=== PATIENT | male | born 1985 | race Two or more races ===

== ENCOUNTER 2023-08-02 08:32 | Inpatient (IN) | payer SELFPAY ==
[~2023-08-02] VITALS: Ht 167.6 cm; Wt 61.9 kg
[2023-08-02] MEDS: SODIUM CHLORIDE 0.9% 1,000 ML IV ONE (09:21)
[2023-08-02 09:33] LABS: Basophils # (auto) 0.1 10 ^3/uL (0-0.2); Eosinophils # (auto) 0.1 10 ^3/uL (0-0.8)
[2023-08-02 09:34] LABS: Basophils % (auto) 0.5 % (0.0-2.0); Eosinophils % (auto) 0.4 % (0.0-7.0); Hemoglobin 11.6 g/dL (13.5-17.5); Lymphocytes # (auto) 1.5 10 ^3/uL (0.4-5.4); Lymphocytes % (auto) 7.7 % (10.0-50.0); Mean Corpuscular Hemoglobin 34.5 pg (28.0-32.0); Mean Corpuscular Volume 101.3 fL (80.0-100.0); Monocytes # (auto) 1.3 10 ^3/uL (0-1.3); Monocytes % (auto) 6.8 % (0.0-12.0); Neutrophils # (auto) 16.6 10 ^3/uL (1.6-8.6); Neutrophils % (auto) 84.6 % (37.0-80.0); Red Blood Cells 3.35 10^6/uL (4.5-5.90); Red Cell Distribution Width 13.8 % (11.8-14.3); White Blood Cell 19.7 10^3/uL (4.4-10.8)
[2023-08-02 09:46] LABS: INR 1.52 (0.9-1.15); Prothrombin Time 15.5 sec (9.3-11.8)
[2023-08-02 09:50] LABS: Alanine Aminotransferase 70 U/L (7-40); Albumin 3.6 g/dL (3.2-4.8); Alkaline Phosphatase 256 U/L (46-116); Anion Gap 7 (5-15); Aspartate Aminotransferase 152 U/L (13-40); BUN/Creatinine Ratio 26.5 (10.0-20.0); Bilirubin, Total 5.1 mg/dL (0.2-1.0); Blood Urea Nitrogen 18 mg/dL (9-23); Calcium 9.1 mg/dL (8.5-10.1); Carbon Dioxide 29 mmol/L (20-30); Chloride 96 mmol/L (98-107); Glucose 158 mg/dL (74-106); Potassium 3.6 mmol/L (3.5-5.1); Sodium 132 mmol/L (136-145)
[2023-08-02 10:16] LABS: Urine Bacteria FEW /hpf (None Seen); Urine Blood Negative /uL (Negative); Urine Clarity Turbid (Clear); Urine Color Dark-Yellow (Yellow); Urine Hyaline Cast MANY /lpf (0 - 2); Urine Mucus FEW (None Seen); Urine Protein, UAD 1+ (Negative); Urine Specific Gravity 1.024 (1.001-1.035); Urine Urobilinogen OVER mg/dL (Negative); Urine WBC 5 /hpf (0 - 3); Urine pH 7.5 (5.0-9.0)
[2023-08-02 10:20] LABS: Amphetamine Screen, Urine Neg (NEGATIVE)
[2023-08-02 10:22] LABS: Barbiturate Scree,Urine Neg (NEGATIVE); Benzodiazephine Screen, Urine Neg (NEGATIVE); Cannabinoid Screen, Urine Pos (NEGATIVE); Cocaine Screen, Urine Neg (NEGATIVE); Opiate Scree,Urine Neg (NEGATIVE); Phencyclidine Screen, Urine Neg (NEGATIVE)
[2023-08-02] MEDS ORDERED: PANTOPRAZOLE 80 MG in SODIUM CHL 0.9% 100 ML IV ONE (10:30)
[2023-08-02] MEDS ORDERED: PANTOPRAZOLE 40mg/50ML NS AE 50 ML IV SCH (14:00)
[2023-08-02] MEDS ORDERED: DOCUSATE SOD 100 MG CAP PO PRN (14:00)
[2023-08-02] MEDS ORDERED: SODIUM CHLORIDE 0.9% 1,000 ML IV ONE (14:00)
[2023-08-02] MEDS ORDERED: cefTRIAXone 1GM/50ML D5W 50 ML IV ONE (14:00)
[2023-08-02] MEDS ORDERED: SODIUM CHLORIDE 0.9% 1,000 ML IV SCH (14:00)
[2023-08-02] MEDS ORDERED: ONDANSETRON HCL 4 MG/2 ML VIAL IV PRN (14:00)
[2023-08-02] MEDS ORDERED: MORPHINE SULFATE INJ 2 MG/ml SYRG IV PRN (14:00)
[2023-08-02 15:32] VITALS: BP 121/85; PULSE 140; RESP 16; TEMP 99.5; O2SAT 96
[2023-08-02 18:05] LABS: Hematocrit 36.3 % (41.0-53.0)
[2023-08-02] MEDS ORDERED: PIPERACILLIN-TAZOB 3.375GM 100 ML IV ONE (20:00)
[2023-08-03] MEDS ORDERED: PIPERACILLIN-TAZOB 3.375GM 100 ML IV SCH
[2023-08-03] MEDS ORDERED: cefTRIAXone 1GM/50ML D5W 50 ML IV SCH (09:00)
== END 2023-08-02 21:57 | disposition left against medical advice (07) | DRG 379 ==
LOC: ER 08:32 → EDBD 08:32 → OVERFLOW 14:06
PROVIDERS: ADMIT Nurse Practitioner Family; ATTEND Nurse Practitioner Family
DX: K92.2 Gastrointestinal hemorrhage, unspecified (principal); K70.9 Alcoholic liver disease, unspecified; D72.829 Elevated white blood cell count, unspecified; D50.0 Iron deficiency anemia secondary to blood loss (chronic); E86.0 Dehydration; F12.10 Cannabis abuse, uncomplicated
CPT/HCPCS: 36415; 76705; 80053; 80074; 80307; 80320; 81001; 83605; 85014; 85018; 85025; 85610; 85730; C9113; G0378

== ENCOUNTER 2023-08-03 04:55 | Inpatient (IN) | payer SELFPAY ==
[~2023-08-03] VITALS: Ht 167.6 cm; Wt 70.0 kg
[2023-08-03] MEDS: LORazepam 2MG/ML-1ML VIAL IV ONE (05:42)
[2023-08-03] MEDS: PANTOPRAZOLE 40 MG/10 ML VIAL INJ IV ONE (05:42)
[2023-08-03] MEDS: SODIUM CHLORIDE 0.9% 500 ML IV ONE (05:42)
[2023-08-03 05:48] LABS: Basophils # (auto) 0.1 10 ^3/uL (0-0.2); Eosinophils # (auto) 0 10 ^3/uL (0-0.8); Hemoglobin 9.1 g/dL (13.5-17.5); White Blood Cell 24.1 10^3/uL (4.4-10.8)
[2023-08-03 05:50] LABS: Basophils % (auto) 0.3 % (0.0-2.0); Eosinophils % (auto) 0.1 % (0.0-7.0); Hematocrit 26.8 % (41.0-53.0); Lymphocytes # (auto) 2.5 10 ^3/uL (0.4-5.4); Lymphocytes % (auto) 10.3 % (10.0-50.0); Mean Corpuscular Hemoglobin 34.9 pg (28.0-32.0); Mean Corpuscular Volume 102.7 fL (80.0-100.0); Monocytes # (auto) 1.4 10 ^3/uL (0-1.3); Monocytes % (auto) 5.9 % (0.0-12.0); Neutrophils # (auto) 20.1 10 ^3/uL (1.6-8.6); Neutrophils % (auto) 83.4 % (37.0-80.0); Red Blood Cells 2.61 10^6/uL (4.5-5.90); Red Cell Distribution Width 14.3 % (11.8-14.3)
[2023-08-03 06:02] LABS: Chloride 99 mmol/L (98-107); Potassium 3.5 mmol/L (3.5-5.1); Sodium 138 mmol/L (136-145)
[2023-08-03 06:03] LABS: Anion Gap 14 (5-15); Carbon Dioxide 25 mmol/L (20-30)
[2023-08-03 06:08] LABS: BUN/Creatinine Ratio 42.7 (10.0-20.0); Glucose 175 mg/dL (74-106)
[2023-08-03 06:09] LABS: Blood Alcohol < 3.0 mg/dL (<10); Blood Urea Nitrogen 41 mg/dL (9-23); INR 1.47 (0.9-1.15); Partial Thromboplastin Time 25.5 SEC (24.5-34.5); Prothrombin Time 15.1 sec (9.3-11.8)
[2023-08-03 07:40] VITALS: PULSE 136; RESP 16; O2SAT 98
[2023-08-03] MEDS ORDERED: SODIUM CHLORIDE 0.9% 500 ML IV ONE (10:30)
[2023-08-03] MEDS ORDERED: ACETAMINOPHEN 325 MG TAB PO PRN (10:30)
[2023-08-03] MEDS ORDERED: SODIUM CHLORIDE 0.9% 1,900 ML IV ONE (10:30)
[2023-08-03] MEDS ORDERED: MORPHINE SULFATE INJ 2 MG/ml SYRG IV PRN (10:30)
[2023-08-03] MEDS ORDERED: DOCUSATE SOD 100 MG CAP PO PRN (10:30)
[2023-08-03] MEDS ORDERED: LORazepam 2MG/ML-1ML VIAL IV PRN (10:30)
[2023-08-03] MEDS ORDERED: SODIUM CHLORIDE 0.9% 1,000 ML IV SCH (10:30)
[2023-08-03] MEDS ORDERED: ONDANSETRON HCL 4 MG/2 ML VIAL IV PRN (10:30)
[2023-08-03 11:25] LABS: Ferritin 715.9 ng/mL (22-322); Folate (Folic Acid) 7.79 ng/mL (>5.38)
[2023-08-03 11:26] LABS: % Iron Saturation 76.6 % (20-55)
[2023-08-03 11:37] LABS: Alanine Aminotransferase 67 U/L (7-40); Albumin 3.1 g/dL (3.2-4.8); Alkaline Phosphatase 188 U/L (46-116); Anion Gap 8 (5-15); Aspartate Aminotransferase 143 U/L (13-40); Blood Urea Nitrogen 48 mg/dL (9-23); Calcium 8.7 mg/dL (8.5-10.1); Carbon Dioxide 28 mmol/L (20-30); Chloride 104 mmol/L (98-107); Glucose 128 mg/dL (74-106); Potassium 3.6 mmol/L (3.5-5.1); Sodium 140 mmol/L (136-145)
[2023-08-03] MEDS: SODIUM CHLORIDE 0.9% 2,000 ML IV ONE (11:49)
[2023-08-03 12:55] LABS: Hematocrit 22.8 % (41.0-53.0); Hemoglobin 7.6 g/dL (13.5-17.5)
[2023-08-03] MEDS: PIPERACILLIN-TAZOB 3.375GM 100 ML IV SCH (12:59)
[2023-08-03] MEDS: PANTOPRAZOLE 40 MG in SODIUM CHL 0.9% 100 ML IV ONE (13:12)
[2023-08-03] MEDS: PANTOPRAZOLE 40mg/50ML NS AE 50 ML IV SCH (13:31)
[2023-08-03] MEDS: OCTREOTIDE ACETATE 100 MCG in SODIUM CHL 0.9% 50 ML IV ONE (15:21)
[2023-08-03] MEDS: OCTREOTIDE ACETATE 500 MCG in SODIUM CHL 0.9% 99 ML IV SCH (16:00)
[2023-08-03] MEDS: SODIUM CHLORIDE 0.9% 1,000 ML IV SCH (17:07)
[2023-08-03 18:43] LABS: Hematocrit 21.8 % (41.0-53.0); Hemoglobin 7.2 g/dL (13.5-17.5)
[2023-08-03] MEDS: IOHEXOL 300 MG/ML 100ML BOTTLE IJ ONE (19:26)
[2023-08-03 20:00] VITALS: PULSE 101; RESP 18; O2SAT 98
[2023-08-03] MEDS: OCTREOTIDE ACETATE 500 MCG/ML VL ONE (23:32)
[2023-08-04] VITALS (17 sets, daily range): BP systolic 98–120; BP diastolic 56–77; PULSE 84–111; RESP 16–20; TEMP 97.1–98.7; O2SAT 91–97
[2023-08-04 00:37] LABS: Hematocrit 22.4 % (41.0-53.0); Hemoglobin 7.3 g/dL (13.5-17.5)
[2023-08-04] MEDS ORDERED: ONDANSETRON HCL 4 MG/2 ML VIAL IV ONE (10:15)
[2023-08-04] MEDS ORDERED: hydrALAZINE HCL 20 MG/ML VL IV PRN (10:15)
[2023-08-04 12:32] LABS: Basophils # (auto) 0.2 10 ^3/uL (0-0.2); Basophils % (auto) 1.3 % (0.0-2.0); Eosinophils # (auto) 0.4 10 ^3/uL (0-0.8); Eosinophils % (auto) 2.8 % (0.0-7.0); Hematocrit 26.4 % (41.0-53.0); Hemoglobin 8.9 g/dL (13.5-17.5); Lymphocytes # (auto) 2.6 10 ^3/uL (0.4-5.4); Lymphocytes % (auto) 19.8 % (10.0-50.0); Mean Corpuscular Hemoglobin 33.2 pg (28.0-32.0); Mean Corpuscular Hgb Conc. 33.7 g/dL (32.0-36.0); Mean Corpuscular Volume 98.6 fL (80.0-100.0); Monocytes # (auto) 1.4 10 ^3/uL (0-1.3); Neutrophils # (auto) 8.5 10 ^3/uL (1.6-8.6); Neutrophils % (auto) 65.1 % (37.0-80.0); Nucleated Red Blood Cells % 0.1 %; Red Blood Cells 2.68 10^6/uL (4.5-5.90); Red Cell Distribution Width 17.8 % (11.8-14.3); White Blood Cell 13.1 10^3/uL (4.4-10.8)
[2023-08-04 14:38] LABS: Alanine Aminotransferase 56 U/L (7-40); Albumin 2.6 g/dL (3.2-4.8); Alkaline Phosphatase 138 U/L (46-116); Anion Gap 6 (5-15); Aspartate Aminotransferase 112 U/L (13-40); Bilirubin, Total 2.3 mg/dL (0.2-1.0); Blood Urea Nitrogen 20 mg/dL (9-23); Calcium 7.4 mg/dL (8.5-10.1); Carbon Dioxide 25 mmol/L (20-30); Chloride 110 mmol/L (98-107); Glucose 132 mg/dL (74-106); Potassium 3.3 mmol/L (3.5-5.1); Sodium 141 mmol/L (136-145); Total Protein 5.7 g/dL (5.7-8.2)
[2023-08-04] MEDS: POTASSIUM CHL 20 Meq TABLET PO ONE (16:20)
[2023-08-04 18:43] LABS: Hematocrit 25.6 % (41.0-53.0); Hemoglobin 8.3 g/dL (13.5-17.5)
[2023-08-04] MEDS: PANTOPRAZOLE 40 MG/10 ML VIAL INJ IV SCH (21:50)
[2023-08-04] MEDS: OCTREOTIDE ACETATE 500 MCG in SODIUM CHL 0.9% 99 ML IV SCH (22:47)
[2023-08-05] VITALS (10 sets, daily range): BP systolic 109–139; BP diastolic 56–82; PULSE 95–111; RESP 16–18; TEMP 98.1–98.7; O2SAT 89–100
[2023-08-05 06:12] LABS: Basophils # (auto) 0.2 10 ^3/uL (0-0.2); Eosinophils # (auto) 0.5 10 ^3/uL (0-0.8); Hemoglobin 8.3 g/dL (13.5-17.5); Monocytes # (auto) 1.4 10 ^3/uL (0-1.3); Nucleated Red Blood Cells % 0.3 %
[2023-08-05 06:14] LABS: Basophils % (auto) 1.3 % (0.0-2.0); Eosinophils % (auto) 3.8 % (0.0-7.0); Hematocrit 24.8 % (41.0-53.0); Lymphocytes # (auto) 3.5 10 ^3/uL (0.4-5.4); Lymphocytes % (auto) 28.1 % (10.0-50.0); Mean Corpuscular Hemoglobin 33.2 pg (28.0-32.0); Mean Corpuscular Hgb Conc. 33.4 g/dL (32.0-36.0); Mean Corpuscular Volume 99.5 fL (80.0-100.0); Monocytes % (auto) 11.3 % (0.0-12.0); Neutrophils % (auto) 55.5 % (37.0-80.0); Red Blood Cells 2.49 10^6/uL (4.5-5.90); Red Cell Distribution Width 17.8 % (11.8-14.3); White Blood Cell 12.5 10^3/uL (4.4-10.8)
[2023-08-05] MEDS ORDERED: METR-344 PO (14:36)
== END 2023-08-05 17:35 | disposition home or self-care (01) | DRG 377 ==
LOC: ER 04:55 → EDSEX 04:55 → EDBD 04:55 → TELE 10:27 → TELE-WESTW 22:52
PROVIDERS: ADMIT Internal Medicine; ATTEND Internal Medicine
PROC: 30233N1 Transfusion of Nonautologous Red Blood Cells into Peripheral Vein, Percutaneous Approach (ICD-10-PCS; 2023-08-04)
PROC: 0DB78ZX Excision of Stomach, Pylorus, Via Natural or Artificial Opening Endoscopic, Diagnostic (ICD-10-PCS; principal; 2023-08-04 09:38)
DX: K26.4 Chronic or unspecified duodenal ulcer with hemorrhage (principal); K20.91 Esophagitis, unspecified with bleeding; F10.139 Alcohol abuse with withdrawal, unspecified; D62 Acute posthemorrhagic anemia; K29.01 Acute gastritis with bleeding; Y90.9 Presence of alcohol in blood, level not specified; K70.9 Alcoholic liver disease, unspecified; E86.0 Dehydration; D72.829 Elevated white blood cell count, unspecified
CPT/HCPCS: 36415; 74177; 80048; 80053; 80320; 82607; 82728; 82746; 83540; 83550; 83605; 83615; 85014; 85018; 85025; 85045; 85610; 85730; 86850; 86900; 86901; 86920; 87040; 93005; 96365; 96375; C9113; G0378; J2543

== ENCOUNTER 2023-11-06 02:44 | Inpatient (IN) | payer MEDICAID, OTHER ==
[2023-11-06] VITALS (39 sets, daily range): BP systolic 86–114; BP diastolic 37–71; PULSE 99–121; RESP 12–26; TEMP 97.6–99; O2SAT 94–100
[~2023-11-06] VITALS: Ht 165.1 cm; Wt 65.3 kg
[~2023-11-06 02:44] MED LIST: METR-344 PO
[2023-11-06] MEDS: SODIUM CHLORIDE 0.9% 1,000 ML IV ONE ×2 (04:14→05:38)
[2023-11-06] MEDS: PANTOPRAZOLE 40 MG/10 ML VIAL INJ IV ONE (04:17)
[2023-11-06 04:31] LABS: INR 1.63 (0.9-1.15); Prothrombin Time 16.7 sec (9.3-11.8)
[2023-11-06 04:31] LABS: Hematocrit 7.4 % (41.0-53.0); Red Blood Cells 0.96 10^6/uL (4.5-5.90)
[2023-11-06 04:32] LABS: Mean Corpuscular Hemoglobin 19.6 pg (28.0-32.0); Mean Corpuscular Hgb Conc. 25.6 g/dL (32.0-36.0); Mean Corpuscular Volume 76.7 fL (80.0-100.0)
[2023-11-06 04:34] LABS: Alanine Aminotransferase 43 U/L (7-40); Albumin 2.9 g/dL (3.2-4.8); Alkaline Phosphatase 166 U/L (46-116); Anion Gap 21 (5-15); Aspartate Aminotransferase 105 U/L (13-40); BUN/Creatinine Ratio 32.3 (10.0-20.0); Blood Urea Nitrogen 42 mg/dL (9-23); Calcium 8.7 mg/dL (8.7-10.4); Carbon Dioxide 15 mmol/L (20-30); Chloride 92 mmol/L (98-107); Glucose 106 mg/dL (74-106); Potassium 4.1 mmol/L (3.5-5.1); Sodium 128 mmol/L (136-145)
[2023-11-06 04:35] LABS: Bilirubin, Total 1.8 mg/dL (0.2-1.0); Total Protein 6.4 g/dL (5.7-8.2)
[2023-11-06 04:35] LABS: Red Cell Distribution Width 26.3 % (11.8-14.3)
[2023-11-06 04:36] LABS: Hemoglobin 1.9 g/dL (13.5-17.5); White Blood Cell 32.9 10^3/uL (4.4-10.8)
[2023-11-06 04:38] LABS: Basophils % (manual) 0 (0.0-2.0); Blast Cells 0; Eosinophils % (manual) 0 (0-7); Metamyelocytes % 0; Myelocytes % 0; Promyelocytes % 0; Reactive Lymphocytes 0
[2023-11-06] MEDS: OCTREOTIDE ACETATE 500 MCG in SODIUM CHL 0.9% 99 ML IV SCH (05:38)
[2023-11-06] MEDS: OCTREOTIDE ACETATE 500 MCG/ML VL ONE (05:52)
[2023-11-06 06:21] LABS: Band Neutrophils % (manual) 4; Lymphocytes % (manual) 9 (10.0-50.0); Monocytes % (manual) 12 (0-12)
[2023-11-06 06:22] LABS: Anisocytosis Moderate; Hypochromia Marked
[2023-11-06 06:23] LABS: Platelet Estimate Adequate
[2023-11-06] MEDS ORDERED: NITROGLYCERIN 0.4 MG SL TAB SL PRN (06:30)
[2023-11-06] MEDS ORDERED: MORPHINE SULFATE INJ 2 MG/ml SYRG IV PRN ×2 (06:30→14:45)
[2023-11-06] MEDS ORDERED: ONDANSETRON HCL 4 MG/2 ML VIAL IV PRN (06:30)
[2023-11-06] MEDS: PANTOPRAZOLE 40mg/50ML NS AE 50 ML IV SCH (06:49)
[2023-11-06] MEDS ORDERED: LORazepam 2MG/ML-1ML VIAL IV PRN (12:15)
[2023-11-06] MEDS ORDERED: OMNIPAQUE 12mg/ml 500ml ORAL SOLUTION PO ONE (12:18)
[2023-11-06 19:33] LABS: Hematocrit 17.3 % (41.0-53.0); Mean Corpuscular Hemoglobin 27.2 pg (28.0-32.0); Mean Corpuscular Hgb Conc. 32.4 g/dL (32.0-36.0); Mean Corpuscular Volume 84.1 fL (80.0-100.0); Red Blood Cells 2.06 10^6/uL (4.5-5.90); White Blood Cell 22.3 10^3/uL (4.4-10.8)
[2023-11-06 19:36] LABS: Red Cell Distribution Width 21.8 % (11.8-14.3)
[2023-11-06 19:37] LABS: Hemoglobin 5.6 g/dL (13.5-17.5)
[2023-11-06 19:39] LABS: Band Neutrophils % (manual) 0; Basophils % (manual) 0 (0.0-2.0); Blast Cells 0; Eosinophils % (manual) 0 (0-7); Metamyelocytes % 0; Myelocytes % 0; Promyelocytes % 0; Reactive Lymphocytes 0
[2023-11-06 19:47] LABS: INR 1.52 (0.9-1.15); Partial Thromboplastin Time 25.2 SEC (24.5-34.5); Prothrombin Time 15.6 sec (9.3-11.8)
[2023-11-06] MEDS: FOLIC ACID 1 MG, MAGNESIUM SULF SDV 50% 8 MEQ, MULTIPLE VITAMIN 10 ML, THIAMINE INJ 100... INJ SCH (20:00)
[2023-11-06 20:27] LABS: Lymphocytes % (manual) 6 (10.0-50.0); Monocytes % (manual) 9 (0-12)
[2023-11-06 20:28] LABS: Anisocytosis Slight; Platelet Estimate Adequate; Stomatocytes Few
[2023-11-06] MEDS: PANTOPRAZOLE 40 MG/10 ML VIAL INJ IV SCH (22:37)
[2023-11-07] VITALS (51 sets, daily range): BP systolic 97–138; BP diastolic 56–89; PULSE 84–102; RESP 14–26; TEMP 97.9–99.2; O2SAT 87–99
[2023-11-07 04:35] LABS: Urine Bacteria None Seen /hpf (None Seen)
[2023-11-07 04:43] LABS: Urine Blood Negative /uL (Negative); Urine Clarity Clear (Clear); Urine Color Yellow (Yellow); Urine Protein, UAD Negative (Negative); Urine Specific Gravity 1.021 (1.001-1.035); Urine Urobilinogen Normal (Negative); Urine WBC 1 /hpf (0 - 3)
[2023-11-07 04:46] LABS: Basophils # (auto) 0 10 ^3/uL (0-0.2); Basophils % (auto) 0.2 % (0.0-2.0); Eosinophils # (auto) 0 10 ^3/uL (0-0.8); Eosinophils % (auto) 0.1 % (0.0-7.0); Hematocrit 25.8 % (41.0-53.0); Hemoglobin 8.3 g/dL (13.5-17.5); Lymphocytes # (auto) 1.2 10 ^3/uL (0.4-5.4); Mean Corpuscular Hemoglobin 27.6 pg (28.0-32.0); Mean Corpuscular Hgb Conc. 32.3 g/dL (32.0-36.0); Mean Corpuscular Volume 85.6 fL (80.0-100.0); Monocytes # (auto) 1.7 10 ^3/uL (0-1.3); Monocytes % (auto) 9.6 % (0.0-12.0); Neutrophils # (auto) 14.7 10 ^3/uL (1.6-8.6); Neutrophils % (auto) 83.1 % (37.0-80.0); Red Blood Cells 3.01 10^6/uL (4.5-5.90); Red Cell Distribution Width 19.6 % (11.8-14.3); White Blood Cell 17.7 10^3/uL (4.4-10.8)
[2023-11-07 04:54] LABS: Alanine Aminotransferase 85 U/L (7-40); Albumin 3.1 g/dL (3.2-4.8); Alkaline Phosphatase 156 U/L (46-116); Anion Gap 7 (5-15); Aspartate Aminotransferase 212 U/L (13-40); BUN/Creatinine Ratio 32.3 (10.0-20.0); Bilirubin, Total 4.6 mg/dL (0.2-1.0); Calcium 7.8 mg/dL (8.7-10.4); Carbon Dioxide 24 mmol/L (20-30); Chloride 102 mmol/L (98-107); Glucose 108 mg/dL (74-106); Potassium 3.5 mmol/L (3.5-5.1); Total Protein 6.5 g/dL (5.7-8.2)
[2023-11-07 04:59] LABS: Blood Urea Nitrogen 30 mg/dL (9-23); Sodium 133 mmol/L (136-145)
[2023-11-07 09:07] LABS: Platelet Estimate Adequate
[2023-11-07] MEDS ORDERED: PROPOFOL 10 MG/ML 20 ML IV ONE (12:39)
[2023-11-07] MEDS ORDERED: MIDAZOLAM HCL 2MG/2ML 2ml VIAL (1mg/ml) ONE (12:39)
[2023-11-07] MEDS ORDERED: GLYCOPYRROLATE 0.2 MG/ML 1ML VIAL ONE (12:39)
[2023-11-07] MEDS ORDERED: fentaNYL CITRATE 100 MCG/2 ML VL ONE (12:39)
[2023-11-07] MEDS ORDERED: ONDANSETRON HCL 4 MG/2 ML VIAL ONE (12:39)
[2023-11-07] MEDS ORDERED: GADOTERATE MEG 10 MMOL/20ml INJ (0.5MMOL/ml) IV ONE (17:32)
[2023-11-07] MEDS ORDERED: EZ PAQUE SUSP 12OZ BTL ONE (17:32)
[2023-11-07] MEDS: SUCRALFATE 1 GM/10 ML ORAL SUSP GT SCH (18:15)
[2023-11-08] VITALS (11 sets, daily range): BP systolic 120–145; BP diastolic 80–98; PULSE 88–101; RESP 16–21; TEMP 97.7–98.8; O2SAT 91–97
[2023-11-08 08:10] LABS: Basophils # (auto) 0.1 10 ^3/uL (0-0.2); Basophils % (auto) 0.8 % (0.0-2.0); Eosinophils # (auto) 0.1 10 ^3/uL (0-0.8); Eosinophils % (auto) 0.8 % (0.0-7.0); Hematocrit 24.2 % (41.0-53.0); Hemoglobin 7.7 g/dL (13.5-17.5); Lymphocytes # (auto) 1.8 10 ^3/uL (0.4-5.4); Lymphocytes % (auto) 15.4 % (10.0-50.0); Mean Corpuscular Hemoglobin 27.2 pg (28.0-32.0); Mean Corpuscular Hgb Conc. 31.7 g/dL (32.0-36.0); Mean Corpuscular Volume 85.7 fL (80.0-100.0); Monocytes # (auto) 1.5 10 ^3/uL (0-1.3); Monocytes % (auto) 12.9 % (0.0-12.0); Neutrophils # (auto) 8.1 10 ^3/uL (1.6-8.6); Neutrophils % (auto) 70.1 % (37.0-80.0); Nucleated Red Blood Cells % 0.1 %; Red Blood Cells 2.82 10^6/uL (4.5-5.90); Red Cell Distribution Width 19.9 % (11.8-14.3); White Blood Cell 11.5 10^3/uL (4.4-10.8)
[2023-11-08 08:35] LABS: Alanine Aminotransferase 103 U/L (7-40); Albumin 2.7 g/dL (3.2-4.8); Alkaline Phosphatase 139 U/L (46-116); Anion Gap 6 (5-15); Aspartate Aminotransferase 153 U/L (13-40); BUN/Creatinine Ratio 23.7 (10.0-20.0); Blood Urea Nitrogen 18 mg/dL (9-23); Calcium 7.5 mg/dL (8.7-10.4); Carbon Dioxide 24 mmol/L (20-30); Chloride 103 mmol/L (98-107); Glucose 90 mg/dL (74-106); Potassium 3.7 mmol/L (3.5-5.1); Sodium 133 mmol/L (136-145)
[2023-11-08 08:36] LABS: Bilirubin, Total 3.9 mg/dL (0.2-1.0); Total Protein 5.6 g/dL (5.7-8.2)
[2023-11-08] MEDS: FERROUS SULFATE 325mg EC TAB PO SCH (17:49)
[2023-11-09] VITALS (7 sets, daily range): BP systolic 114–140; BP diastolic 76–94; PULSE 81–98; RESP 16–20; TEMP 97.9–98.5; O2SAT 95–97
[2023-11-09 05:36] LABS: Hemoglobin 7.7 g/dL (13.5-17.5)
[2023-11-09 05:42] LABS: Hematocrit 23.5 % (41.0-53.0)
[2023-11-09] MEDS: THIAMINE HCL 100 MG TAB PO SCH (09:48)
[2023-11-09] MEDS: MULTIPLE VITAMINS W/ MINERALS TAB PO SCH (09:49)
[2023-11-09] MEDS: fentaNYL CITRATE 100 MCG/2 ML VL IV ONE (11:00)
[2023-11-09] MEDS: GELATIN 1 SPONGE SIZE 50 TOP ONE (11:00)
[2023-11-09] MEDS: LIDOCAINE 2%HCL (LOCAL ANESTH.) INJ 10ml MDV ONE (11:00)
[2023-11-09] MEDS: MIDAZOLAM HCL 2MG/2ML 2ml VIAL (1mg/ml) IV ONE (11:00)
[2023-11-09] MEDS ORDERED: PANT40TA2 PO (11:33)
[2023-11-09] MEDS ORDERED: SUCR1TAB31 PO (11:33)
== END 2023-11-09 18:30 | disposition home or self-care (01) | DRG 241 ==
LOC: ER 02:44 → DOU IN ICU 06:32 → TELE 06:32 → DOU IN ICU 08:06 → TELE-WESTW 11-08 04:05
PROVIDERS: ADMIT Nurse Practitioner; ATTEND Nurse Practitioner Acute Care
PROC: 30233K1 Transfusion of Nonautologous Frozen Plasma into Peripheral Vein, Percutaneous Approach (ICD-10-PCS; 2023-11-06)
PROC: 30233N1 Transfusion of Nonautologous Red Blood Cells into Peripheral Vein, Percutaneous Approach (ICD-10-PCS; 2023-11-06)
PROC: 0DB68ZX Excision of Stomach, Via Natural or Artificial Opening Endoscopic, Diagnostic (ICD-10-PCS; 2023-11-07)
PROC: 0DB98ZX Excision of Duodenum, Via Natural or Artificial Opening Endoscopic, Diagnostic (ICD-10-PCS; principal; 2023-11-07 12:58)
PROC: 0FB03ZX Excision of Liver, Percutaneous Approach, Diagnostic (ICD-10-PCS; 2023-11-09)
DX: K29.71 Gastritis, unspecified, with bleeding (principal); E43 Unspecified severe protein-calorie malnutrition; K22.11 Ulcer of esophagus with bleeding; K76.6 Portal hypertension; K70.31 Alcoholic cirrhosis of liver with ascites; C22.0 Liver cell carcinoma; E87.1 Hypo-osmolality and hyponatremia; K25.4 Chronic or unspecified gastric ulcer with hemorrhage; K29.81 Duodenitis with bleeding; R65.10 Systemic inflammatory response syndrome (SIRS) of non-infectious origin without acute organ dysfunction; D50.0 Iron deficiency anemia secondary to blood loss (chronic); F10.20 Alcohol dependence, uncomplicated; Y90.9 Presence of alcohol in blood, level not specified; K31.9 Disease of stomach and duodenum, unspecified; K44.9 Diaphragmatic hernia without obstruction or gangrene; Z68.24 Body mass index [BMI] 24.0-24.9, adult
CPT/HCPCS: 10005; 36415; 74150; 74183; 76942; 77012; 80053; 81001; 82105; 82378; 83615; 85007; 85014; 85018; 85025; 85027; 85610; 85730; 86301; 86850; 86900; 86901; 86920; 87081; G0378; J2001; J2250; J2405; J2470; J2704

== ENCOUNTER 2024-01-25 15:44 | Inpatient (IN) | payer SELFPAY ==
[~2024-01-25] VITALS: Ht 167.6 cm; Wt 56.6 kg
[~2024-01-25 15:44] MED LIST changes: +PANT40TA2 PO; +SUCR1TAB31 PO
[2024-01-25] MEDS: SODIUM CHLORIDE 0.9% 1,000 ML IVB ONE (17:00)
[2024-01-25] MEDS: PANTOPRAZOLE 40 MG TAB PO ONE (18:15)
[2024-01-25 19:04] LABS: Basophils # (auto) 0.1 10 ^3/uL (0-0.2); Eosinophils # (auto) 0 10 ^3/uL (0-0.8); Eosinophils % (auto) 0.1 % (0.0-7.0); Hematocrit 11.4 % (41.0-53.0); Lymphocytes # (auto) 0.7 10 ^3/uL (0.4-5.4); Mean Corpuscular Hemoglobin 21.7 pg (28.0-32.0); Mean Corpuscular Hgb Conc. 29.8 g/dL (32.0-36.0); Mean Corpuscular Volume 72.7 fL (80.0-100.0); Neutrophils % (auto) 84.8 % (37.0-80.0); Red Blood Cells 1.56 10^6/uL (4.5-5.90)
[2024-01-25 19:05] LABS: Basophils % (auto) 1.5 % (0.0-2.0); Lymphocytes % (auto) 7.8 % (10.0-50.0); Monocytes # (auto) 0.5 10 ^3/uL (0-1.3); Monocytes % (auto) 5.8 % (0.0-12.0); Neutrophils # (auto) 7.4 10 ^3/uL (1.6-8.6); Nucleated Red Blood Cells % 0.3 %; Platelet Count (auto) 197 10^3/uL (140-450); White Blood Cell 8.7 10^3/uL (4.4-10.8)
[2024-01-25 19:17] LABS: Alanine Aminotransferase 17 U/L (7-40); Albumin 3.6 g/dL (3.2-4.8); Alkaline Phosphatase 199 U/L (46-116); Anion Gap 9 (5-15); Aspartate Aminotransferase 34 U/L (13-40); BUN/Creatinine Ratio 24.5 (10.0-20.0); Bilirubin, Total 2.2 mg/dL (0.2-1.0); Blood Urea Nitrogen 13 mg/dL (9-23); Calcium 9.2 mg/dL (8.7-10.4); Carbon Dioxide 21 mmol/L (20-31); Chloride 106 mmol/L (98-107); Glucose 128 mg/dL (74-106); Lipase 27 U/L (12-53); Magnesium 1.6 mg/dL (1.6-2.6); Potassium 4.1 mmol/L (3.5-5.1); Sodium 136 mmol/L (136-145); Total Protein 7.4 g/dL (5.7-8.2)
[2024-01-25 19:18] LABS: INR 1.4 (0.9-1.15); Partial Thromboplastin Time 22.9 SEC (24.5-34.5); Prothrombin Time 14.5 sec (9.3-11.8)
[2024-01-25 19:29] LABS: Red Cell Distribution Width 25.6 % (11.8-14.3)
[2024-01-25 19:30] LABS: Hemoglobin 3.4 g/dL (13.5-17.5)
[2024-01-25 19:45] VITALS: PULSE 124; RESP 20; O2SAT 99
[2024-01-25 20:01] LABS: Urine Bacteria FEW /hpf (None Seen); Urine Blood Negative /uL (Negative); Urine Clarity Turbid (Clear); Urine Color Yellow (Yellow); Urine Mucus MODERATE (None Seen); Urine Protein, UAD 1+ (Negative); Urine Urobilinogen 3 mg/dL (Negative); Urine WBC 8 /hpf (0 - 3)
[2024-01-25] MEDS: PANTOPRAZOLE 40mg/50ML NS AE 50 ML IV ONE (20:07)
[2024-01-25 20:11] LABS: Anisocytosis Moderate; Hypochromia Moderate; Platelet Estimate Adequate
[2024-01-25 20:15] LABS: Tear Drop Cells FEW
[2024-01-25] MEDS ORDERED: MORPHINE SULFATE INJ 2 MG/ml SYRG IV PRN (20:30)
[2024-01-25] MEDS ORDERED: ACETAMINOPHEN 500 MG TAB PO PRN (20:30)
[2024-01-25] MEDS: MAGNESIUM SULFATE 1GM/100ML 100 ML IV ONE (20:56)
[2024-01-25] MEDS: SODIUM CHLORIDE 0.9% 1,000 ML IV ONE (20:56)
[2024-01-25] MEDS: THIAMINE 100mg/ml INJ (200mg/2ml VIAL) IV ONE (20:56)
[2024-01-25 21:23] LABS: Blood Alcohol < 3.0 mg/dL (<10)
[2024-01-25 21:25] LABS: Phosphorus 4.3 mg/dL (2.4-5.1)
[2024-01-25 21:50] VITALS: BP 119/65; PULSE 120; RESP 19; TEMP 99.3
[2024-01-25 21:55] VITALS: BP 128/71; PULSE 118; RESP 19; TEMP 99.3
[2024-01-25 22:10] VITALS: BP 125/69; PULSE 117; RESP 17; TEMP 99.3
[2024-01-25] MEDS ORDERED: LORazepam 2MG/ML-1ML VIAL IV PRN ×2 (22:15→23:30)
[2024-01-25] MEDS ORDERED: DEXTROSE (50%) 50ML SYRG IV PRN (22:15)
[2024-01-25] MEDS: OCTREOTIDE ACETATE 100 MCG in SODIUM CHL 0.9% 50 ML IV ONE (22:28)
[2024-01-25 22:31] LABS: Amphetamine Screen, Urine Neg (NEGATIVE); Barbiturate Scree,Urine Neg (NEGATIVE); Benzodiazephine Screen, Urine Neg (NEGATIVE); Cannabinoid Screen, Urine Pos (NEGATIVE); Cocaine Screen, Urine Pos (NEGATIVE); Opiate Scree,Urine Neg (NEGATIVE); Phencyclidine Screen, Urine Neg (NEGATIVE)
[2024-01-25] MEDS: OCTREOTIDE ACETATE 500 MCG in SODIUM CHL 0.9% 99 ML IV SCH (22:40)
[2024-01-26] VITALS (21 sets, daily range): BP systolic 115–154; BP diastolic 72–99; PULSE 80–102; RESP 14–22; TEMP 98.2–99.2; O2SAT 97–99
[2024-01-26] MEDS: InsuLIN REG 1unit/0.01ml Soln (100units/ml) SC SCH
[2024-01-26] MEDS: cefTRIAXone 1GM/50ML D5W 50 ML IV ONE (00:01)
[2024-01-26] MEDS: ACCU-CHEK COMFORT CURVE STRIP VI SCH (00:29)
[2024-01-26 05:59] LABS: Basophils # (auto) 0.1 10 ^3/uL (0-0.2); Eosinophils # (auto) 0 10 ^3/uL (0-0.8); Eosinophils % (auto) 0.1 % (0.0-7.0); Mean Corpuscular Hemoglobin 25.1 pg (28.0-32.0); Mean Corpuscular Hgb Conc. 31.2 g/dL (32.0-36.0)
[2024-01-26 06:01] LABS: Basophils % (auto) 0.8 % (0.0-2.0); Hematocrit 16.8 % (41.0-53.0); Lymphocytes # (auto) 1.7 10 ^3/uL (0.4-5.4); Lymphocytes % (auto) 16.5 % (10.0-50.0); Mean Corpuscular Volume 80.7 fL (80.0-100.0); Monocytes # (auto) 1.1 10 ^3/uL (0-1.3); Monocytes % (auto) 10.4 % (0.0-12.0); Neutrophils # (auto) 7.3 10 ^3/uL (1.6-8.6); Neutrophils % (auto) 72.2 % (37.0-80.0); Nucleated Red Blood Cells % 0.1 %; Platelet Count (auto) 124 10^3/uL (140-450); Red Blood Cells 2.08 10^6/uL (4.5-5.90); White Blood Cell 10.1 10^3/uL (4.4-10.8)
[2024-01-26 06:08] LABS: Red Cell Distribution Width 22.9 % (11.8-14.3)
[2024-01-26 06:09] LABS: Hemoglobin 5.2 g/dL (13.5-17.5)
[2024-01-26 06:21] LABS: % Iron Saturation 21.8 % (20-55)
[2024-01-26 06:22] LABS: Alanine Aminotransferase 14 U/L (7-40); Albumin 2.8 g/dL (3.2-4.8); Alkaline Phosphatase 152 U/L (46-116); Anion Gap 7 (5-15); Aspartate Aminotransferase 29 U/L (13-40); BUN/Creatinine Ratio 23.1 (10.0-20.0); Blood Urea Nitrogen 12 mg/dL (9-23); Calcium 8.2 mg/dL (8.7-10.4); Carbon Dioxide 20 mmol/L (20-31); Chloride 110 mmol/L (98-107); Glucose 108 mg/dL (74-106); Potassium 4.3 mmol/L (3.5-5.1); Sodium 137 mmol/L (136-145)
[2024-01-26 06:23] LABS: Bilirubin, Total 2.3 mg/dL (0.2-1.0)
[2024-01-26] MEDS: cefTRIAXone 1GM/50ML D5W 50 ML IV SCH (09:29)
[2024-01-26 11:47] LABS: INR 1.29 (0.9-1.15); Partial Thromboplastin Time 24.4 SEC (24.5-34.5); Prothrombin Time 13.4 sec (9.3-11.8)
[2024-01-26 16:01] LABS: Hematocrit 21.2 % (41.0-53.0)
[2024-01-26 16:13] LABS: Hemoglobin 6.7 g/dL (13.5-17.5)
[2024-01-26] MEDS ORDERED: SUCRALFATE 1 GM/10 ML ORAL SUSP GT SCH (17:00)
[2024-01-26] MEDS: SUCRALFATE 1 GM/10 ML ORAL SUSP PO SCH (17:09)
[2024-01-26] MEDS: OCTREOTIDE ACETATE 500 MCG/ML VL ONE (18:42)
[2024-01-26] MEDS: PANTOPRAZOLE 40 MG/10 ML VIAL INJ IV SCH (22:14)
[2024-01-26 23:48] LABS: Hematocrit 26.7 % (41.0-53.0); Hemoglobin 9.1 g/dL (13.5-17.5)
[2024-01-27 08:30] VITALS: PULSE 83; RESP 16; O2SAT 97
[2024-01-27 09:00] VITALS: PULSE 96
[2024-01-27 09:01] VITALS: BP 163/98; PULSE 94; RESP 19; TEMP 97.9; O2SAT 98
[2024-01-27 09:09] VITALS: PULSE 94; RESP 17; O2SAT 97
[2024-01-27 13:00] VITALS: BP 149/95; PULSE 81; RESP 18; TEMP 98.2; O2SAT 96
[2024-01-27 14:48] LABS: Basophils # (auto) 0.1 10 ^3/uL (0-0.2); Basophils % (auto) 1.5 % (0.0-2.0); Eosinophils # (auto) 0.2 10 ^3/uL (0-0.8); Eosinophils % (auto) 2.8 % (0.0-7.0); Hematocrit 27.8 % (41.0-53.0); Hemoglobin 9.3 g/dL (13.5-17.5); Lymphocytes % (auto) 13.9 % (10.0-50.0); Mean Corpuscular Hgb Conc. 33.3 g/dL (32.0-36.0); Monocytes # (auto) 0.7 10 ^3/uL (0-1.3); Monocytes % (auto) 9.1 % (0.0-12.0); Neutrophils # (auto) 5.2 10 ^3/uL (1.6-8.6); Neutrophils % (auto) 72.7 % (37.0-80.0); Platelet Count (auto) 128 10^3/uL (140-450); Red Blood Cells 3.43 10^6/uL (4.5-5.90); Red Cell Distribution Width 19.9 % (11.8-14.3); White Blood Cell 7.2 10^3/uL (4.4-10.8)
[2024-01-27 17:00] VITALS: BP 144/85; PULSE 90; RESP 17; TEMP 98.3; O2SAT 97
[2024-01-28 11:19] LABS: Folate (Folic Acid) 8.6 ng/mL (>5.38)
== END 2024-01-27 19:55 | disposition home or self-care (01) | DRG 432 ==
LOC: ER 15:44 → OVERFLOW 21:44 → TELE-EAST 21:51
PROVIDERS: ADMIT Student in an Organized Health Care Education/Training Program; ATTEND Emergency Medicine
PROC: 30233N1 Transfusion of Nonautologous Red Blood Cells into Peripheral Vein, Percutaneous Approach (ICD-10-PCS; 2024-01-25)
PROC: 30233K1 Transfusion of Nonautologous Frozen Plasma into Peripheral Vein, Percutaneous Approach (ICD-10-PCS; principal; 2024-01-26)
DX: K74.60 Unspecified cirrhosis of liver (principal); I85.11 Secondary esophageal varices with bleeding; K26.4 Chronic or unspecified duodenal ulcer with hemorrhage; D68.9 Coagulation defect, unspecified; F10.139 Alcohol abuse with withdrawal, unspecified; K70.9 Alcoholic liver disease, unspecified; D50.0 Iron deficiency anemia secondary to blood loss (chronic); F14.10 Cocaine abuse, uncomplicated; Z87.11 Personal history of peptic ulcer disease; Z79.899 Other long term (current) drug therapy; Y90.9 Presence of alcohol in blood, level not specified
CPT/HCPCS: 36415; 71046; 74176; 80053; 80307; 80320; 81001; 82306; 82607; 82746; 82962; 83540; 83550; 83690; 83735; 84100; 84443; 85014; 85018; 85025; 85610; 85730; 86850; 86900; 86901; 86920; 93005; 99291; G0378; J2470

== ENCOUNTER 2024-07-12 19:46 | Inpatient (IN) | payer MEDICAID ==
[~2024-07-12] VITALS: Ht 167.6 cm; Wt 91.4 kg
[~2024-07-12 19:46] MED LIST changes: -METR-344 PO
--- NOTE | 2024-07-12 20:19 | ED.PDOC ---
GI ASSESSMENT HPI Comments 39 M who presents to the ED for chief complaint of GI bleeding. - pt states over the past 2 days, he has been having blood in his vomit with associated lower GI bleeding. - pt states he has history of liver cirrhosis and appears yellow and pale in complexion in the ED -pt states he had these similar set of symptoms in January 2024 and states he was transfused. - pt in the ED otherwise has noted generalized weakness and shortness of breath but otherwise denies chest pain, nausea, fever, cough, chills, headache, dizziness or abdominal pain - pt was hospitalized and discharged on 01/26 with the with following discharge summary: 38 year old male has a PMH of liver cirrhosis, multiple liver mass for which patient had biopsy and mentions "its not cancer, but scarring", duodenal ulcer, previous upper GI bleed, portal hypertension, alcohol use disorder, anemia and PSH of upper gi endoscopy done on 11/07/23 at [facility] which revealed 1. Slight prominence of the single distal esophageal vein however no significant esophageal varix, 1-2 cm sliding-type hiatal hernia with minimal grade a erosive esophagitis , Moderate portal hypertension gastropathy with increased oozing from biopsy sites, Mild antral gastritis with pre-pyloric antral gastric erosions Mild duodenitis with superficial erosions and some oozing from scope pressure, and upper GI endoscopy done on 08/04/23 revealed Small tiny esophageal varix without bleed distal esophagus, Distal esophagitis mild Antral gastritis with erosions, More superficial duodenal ulcer with no gross bleeding seen. He presented with complaints of vomiting associated with blood in the vomitus since 12 pm. He had 3 episodes of bloody vomitus. He mentioned he had 2 beers 2 days ago. pt was prescribed with pantoprazole and sucralfate that he stopped taking 1month ago as her ran out of medication. He also mentioned associated SOB and dizziness that is improving now. He denied any complaints of chest pain, shortness of breath, palpitations, constipation, diarrhea, melena, hematochezia, headache. pt was evaluated by GI and deemed to not needing EGD. Pt was given several units of PRBC and without any active bleeding after 48 hours of monitoring patient, he was deemed stable to be discharged. 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 HPI: Poor Historian. REVIEW OF SYSTEMS: CONSTITUTIONAL: Denies acute: fever, diaphoresis, chills, HEAD: Denies acute: headache, photophobia Eyes: Denies acute: Double vision, vision loss, eye pain, eye discharge. EARS: Denies acute: tinnitus, hearing loss, ear discharge, ear pain, THROAT: Denies acute: sore throat, swelling, difficulty swallowing , pain with swallowing, change in voice. NECK: Denies acute: neck pain, neck swelling, stiff neck. HEART: Denies acute : chest pain, LUNGS: Denies acute: , wheezing, cough, hemoptysis ABDOMEN: Denies acute: abdominal pain, diarrhea, , hematochezia SKIN: Denies acute: rash, redness, lesions, itchiness. EXTREMITIES: Denies acute: calf pain, numbness, tingling, weakness, denies pain in extremity. Denies acute: Low back pain. Neuro: Denies acute: focal neurological deficit, motor or sensory focal neurological deficit, tremors, seizure like activity, confusion, dizziness, change in mental status, loss of bowel or bladder function, cauda equina like symptoms. : Denies acute: dysuria, hematuria, flank pain, increase in urinary frequency. PSYCH: Denies acute: hallucination, suicidal ideation, homicidal ideation. ge. PHYSICAL EXAM: General: ----[id number]----acute distress, awake and alert. Head: normocephalic, atraumatic. Neck: supple, trachea is midline, no swelling. Throat: Normal phonation. Eyes:, no erythema, no purulent discharge, no proptosis, no icterus. Heart: regular tachycardic, no significant murmur appreciated. Lungs: Mild respiratory distress, Able to speak in full sentences. No wheezing, no rhonchi, no crackles. No stridors Clear to auscultation bilaterally. Abdomen: non tender to palpation, non distended, soft, no guarding, no rebound, + bowel sounds. Neuro: Awake, Alert, oriented to name, self, situation, follows commands GCS=15. Speech is normal. Skin: no petechia, no purpura, no cyanosis, very-pale, not jaundice. Lower extremities: --no - Pitting edema no deformity, no focal swelling, no calf TTP. Makes eye contact. moves all four extremities. Face: no apparent facial droop. ED COURSE: Chief Complaint: GI Bleed Time Seen by MD: 20:38 Primary Care Provider: NONE Reviewed Notes: Nurses Notes, Medications, Allergies Allergies: Coded Allergies: NO KNOWN ALLERGIES (Unverified , 08/02/23) Home Meds Active Scripts Pantoprazole Sodium Sesquihydr (Protonix) 40 Mg Tab, 40 MG PO BID for 30 Days, #60 TAB Prov:JOHN YI [employer] 11/09/23 Sucralfate (CARAFATE) 1 Gm Tab, 1 GM PO ACHS for 30 Days, #120 TAB Prov:JOHN YI [employer] 11/09/23 Information Source: Patient Mode of Arrival: Ambulatory Past Medical History PAST MEDICAL HISTORY: Anemia, Liver Surgical History: Denies all surgeries Family History Family History: Reviewed,noncontributory to illness Social History Smoker: Non-Smoker Alcohol: Heavy Drugs: Marijuana Lives In: Home Was a procedure done? Was a procedure done?: No GI differential Dx Differential Diagnosis: Esophageal rupture, Esophagitis, Gastritis/PUD, Gastroenteritis, GI hemorrhage, Ischemic Bowel, Dehydration, Stress Ulcer, Other (Diverticulitis, colitis, fistula, neoplasm, hemorrhoids, anal fissures, constipation, Crohn's disease, ulcerative colitis) X-Ray, Labs, Meds, VS Vital Signs Date Time Temp Pulse Resp B/P (MAP) Pulse Ox O2 Delivery O2 Flow Rate FiO2 07/12/24 21:40 97.6 124 16 102/29 97.6 07/12/24 21:20 97.7 124 17 122/41 97.7 07/12/24 20:30 127 07/12/24 20:03 135 07/12/24 20:00 Oxymizer 6 N/A 07/12/24 20:00 97.4 135 18 115/35 (61) 99 97.4 07/12/24 19:50 97.4 135 18 115/55 (75) 99 97.4 Lab Test 07/12/24 21:32 07/12/24 21:30 07/12/24 20:10 07/12/24 20:09 Range/Units Blood Gas Specimen Type Arterial Blood Gas Sample Site Right radial Blood Gas Patient Temperature 37.0 Arterial Blood Date Drawn [id number] Arterial Blood pH 7.259 L 7.350-7.450 Arterial Blood Partial Pressure CO2 22.3 L 35.0-48.0 mmHg Arterial Blood Partial Pressure O2 50.7 *L 83.0-108.0 mmHg Arterial Blood HCO3 9.8 L 21.0-28.0 mmol/L Ike Test Yes Blood Gas Total Hemoglobin < 4.90 *L 13.5-17.5 g/dL Blood Gas Liter Flow 6.00 Blood Gas Modality Oxymizer FiO2 % 52.0 Blood Gas Critical Value Read Back Yes Blood Gas Notified Whom Sweet Potato Disintegrator pearl Blood Gas Notified Time [id number] Blood Gas Notified By Chartered Accountant nay magallanes Lactic Acid Level Pending 17.4 *H 0.4-2.0 mmol/L Troponin I High Sensitivity Pending 53 </=54 ng/L Plasma/Serum Blood Alcohol Pending Prothrombin Time Pending Prothrombin Time INR Pending Activated Partial Thromboplast Time Pending White Blood Count 75.5 *H 4.4-10.8 10^3/uL Red Blood Count 1.45 L 4.5-5.90 10^6/uL Hemoglobin 2.6 *L 13.5-17.5 g/dL Hematocrit 10.3 L 41.0-53.0 % Mean Corpuscular Volume 71.3 L 80.0-100.0 fL Mean Corpuscular Hemoglobin 18.0 L 28.0-32.0 pg Mean Corpuscular Hemoglobin Concent 25.2 L 32.0-36.0 g/dL Red Cell Distribution Width 25.4 H 11.8-14.3 % Platelet Count 438 140-450 10^3/uL Mean Platelet Volume 7.9 6.9-10.8 fL Neutrophils (%) (Auto) 37.0-80.0 % Lymphocytes (%) (Auto) 10.0-50.0 % Monocytes (%) (Auto) 0.0-12.0 % Basophils (%) (Auto) 0.0-2.0 % Neutrophils # (Auto) 1.6-8.6 10 ^3/uL Lymphocytes # (Auto) 0.4-5.4 10 ^3/uL Monocytes # (Auto) 0-1.3 10 ^3/uL Differential Total Cells Counted 100.0 100 Neutrophils % (Manual) 85 H 37.0-80.0 Band Neutrophils % (Manual) 5 Lymphocytes % (Manual) 4 L 10.0-50.0 Monocytes % (Manual) 5 0-12 Eosinophils % (Manual) 1 0-7 Basophils % (Manual) 0 0.0-2.0 Metamyelocytes % (manual) 0 Myelocytes % (Manual) 0 Promyelocytes % (Manual) 0 Blast Cells % (Manual) 0 Reactive Lymphocytes 0 Platelet Estimate [place] Large Platelets Few Polychromasia Slight Hypochromasia (manual) Moderate Poikilocytosis (manual) Moderate Anisocytosis (manual) Moderate Microcytosis Moderate Ovalocytes Few Stomatocytes Few Sid Cells Few Schistocytes Few Sodium Level 131 L 136-145 mmol/L Potassium Level 4.1 3.5-5.1 mmol/L Chloride Level 93 L 98-107 mmol/L Carbon Dioxide Level < 10 *L 20-31 mmol/L Anion Gap 28.86182 H 5-15 Blood Urea Nitrogen 58 H 9-23 mg/dL Creatinine 2.22 H 0.700-1.30 mg/dL Glomerular Filtration Rate Calc 38 >90 mL/min BUN/Creatinine Ratio 26.1 H 10.0-20.0 Serum Glucose 132 H 74-106 mg/dL Calcium Level 9.3 8.7-10.4 mg/dL Magnesium Level 2.2 1.6-2.6 mg/dL Total Bilirubin 2.9 H 0.2-1.0 mg/dL Aspartate Amino Transferase (AST) 63 H 13-40 U/L Alanine Aminotransferase (ALT) 41 H 7-40 U/L Alkaline Phosphatase 195 H 46-116 U/L B-Type Natriuretic Peptide 69.82 0-100 pg/mL Total Protein 6.9 5.7-8.2 g/dL Albumin 3.8 3.2-4.8 g/dL Current Medications Medications (Trade) Dose Ordered Sig/Kel Route Start Time Stop Time Status Last Admin Pantoprazole Sodium (Protonix) 40 mg ONCE ONCE IV 07/12/24 20:15 07/12/24 20:16 DC 07/12/24 21:02 Piperacillin Sod/ Tazobactam Sod 100 ml @ 100 mls/hr ONCE ONCE IV 07/12/24 20:45 07/12/24 21:44 DC 07/12/24 21:02 [place] [address] Ph: [phone] DIAGNOSTIC IMAGING Diagnostic Imaging Report : [id number] Signed PATIENT: YOVANI SAMUELSCCT: [id number] UNIT: [id number] : 1985 LOC: ER ROOM / BED: / AGE / SEX: 39 / M ADM STATUS: REG ER SERVICE 56 ORDERING PHYSICIAN: PARAS MUNIZ DO PROCEDURE(s): CXRP - CHEST PORTABLE REASON: sob ORDER NUMBER(s): [id number], ACCESSION NUMBER(s): [id number] CHEST RADIOGRAPH Indication: sob Technique: Single frontal view of the chest was obtained COMPARISON: Chest x-ray 01/25/2024 FINDINGS: Lines and Tubes: None Lungs: Clear Pleura: No effusion. No pneumothorax. Cardiomediastinal contours: Unremarkable Bones: Unremarkable IMPRESSION: No evidence of acute cardiopulmonary disease. ATED BY: BRIDGET COELHO DO DICTATED DATE/TIME: 07/12/242035 SIGNED BY: BRIDGET COELHO DO SIGNED DATE/TIME: 07/12/242035 CC: [address] [address] Ph: [phone] DIAGNOSTIC IMAGING Diagnostic Imaging Report : [id number] Signed PATIENT: GARRET SAMUELSKAYLEENCCT: [id number] UNIT: [id number] : 1985 LOC: ER ROOM / BED: / AGE / SEX: 39 / M ADM STATUS: REG ER SERVICE 20 ORDERING PHYSICIAN: PARAS MUNIZ DO PROCEDURE(s): ABPL - CT AB PEL WO CON-NO ORAL OR IV REASON: GI bleed, ORDER NUMBER(s): [id number], ACCESSION NUMBER(s): [id number] Exam: CT CT AB PEL WO CON-NO ORAL OR IV History: GI bleed, Comparison Study: None available at time of dictation. Technique: Multidetector spiral CT of the abdomen was performed from lung bases to pubic symphysis. Imaging was performed without IV contrast. Axial, coronal and sagittal multiplanar reformats were obtained from the axial data set by the technologist. Radiation Dose : 1. Abdomen/Pelvis: CTDIvol 5 mGy, DLP 305 mGy*cm. Findings: Evaluation of solid organs is limited due to lack of intravenous contrast use. Lung Bases: No acute or significant lung base finding. Normal heart size. No pleural or pericardial effusion. Diffuse wall thickening of the distal esophagus. Liver: Nodular contour. Gallbladder and Biliary Tree: Unremarkable Spleen: Unremarkable Pancreas: The pancreas is grossly normal in appearance. Adrenal Glands: Unremarkable Kidneys: Kidneys are grossly normal without calculi or hydronephrosis. Bladder: Grossly unremarkable for degree of distention. Bowel: The stomach is grossly normal in appearance. Small bowel and colon are normal in caliber and distribution. Normal appendix is visualized in the right lower quadrant without findings of appendicitis. Ascites: Absent Lymphadenopathy: No mesenteric, retroperitoneal or periportal lymphadenopathy. Abdominal Wall and Mesentery: Unremarkable. Vasculature: The visualized abdominal aorta is normal in size and caliber. Evaluation of abdominal and pelvic vessels is limited due to lack of intravenous contrast. Perigastric and perisplenic varices. Pelvic Organs: Unremarkable Musculoskeletal: No aggressive focal bony lesions, acute fractures or dislocation. IMPRESSION: Cirrhosis with sequelae of portal hypertension which include perisplenic, perigastric, and periesophageal varices. There is mild diffuse wall thickening of the distal esophagus which was not fully visualized on this study. ATED BY: ELVIRA NICHOLSON DO DICTATED DATE/TIME: 07/12/242150 SIGNED BY: ELVIRA NICHOLSON DO SIGNED DATE/TIME: 07/12/242150 CC: Time of 1ST Reevaluation: 21:07 (The case was discussed with the gastroenterology on-call team (HPI, physical exam, labs and diagnostic tests that were available at the time of disposition, ED course, treatment plan) on the phone. They agree with our management this far out of the said they the follow in consult 1st thing tomorrow morning Dr. Renee. ) Reevaluation 1ST: Unchanged Time of 2ND Reevaluation: 22:04 Reevaluation 2ND: Improved Patient Education/Counseling: Diagnosis, Treatment Family Education/Counseling: No Family Present Comments Patient presented with the above HPI.--GI bleed in cirrhotic patient with severe anemia----workup was initiated. patient was found with the above mentioned diagnosis. the following medications were ordered: please refer to order lists of meds and tests obtained by myself Dr. Muniz. Patient ED course and VS have been stabilized. Patient has been reassessed in the ED and remained in a stable condition. Pertinent incidental findings were discussed with the patient and/or family. Patient/family voices understanding and is agreeable with plan. Patient has been observed in the ED adequate length of time to insure improvement/stability. Escalation of care considered: Consideration of escalation to observation or admission Gastroenterology were consulted. Patient was consented for blood transfusion. Sepsis protocol initiated with conservative fluid resuscitation given his history of liver cirrhosis and being transfused blood in addition. Patient was ADMITTED to the medicine team for further evaluation and treatment of their presentation. All the reports of any imaging studies that were ordered by myself were reviewed by myself. Departure 1 Departure Time of Disposition: 20:39 Impression: Primary Impression: GI bleed Additional Impressions: Liver cirrhosis History of alcohol abuse Symptomatic anemia Sepsis Dehydration Acute renal insufficiency Disposition: ADMITTED INPATIENT Admit to: Tele Condition: Guarded Discharged With: Self Critical Care Note Critical Care Time?: Yes (1 hr-critical care time only) I personally scribed for PARAS MUNIZ DO ([email or web address]) on 07/12/24 at 20:19. Electronically submitted by Octavio Tierney ([facility]). I personally scribed for PARAS MUNIZ DO ([facility]) on 07/12/24 at 20:29. Electronically submitted by Octavio Tierney ([facility] I personally scribed for PARAS MUNIZ DO ([facility]) on 07/12/24 at 20:38. Electronically submitted by Octavio Tierney ([facility] I personally scribed for PARAS MUNIZ DO ([facility]) on 07/12/24 at 21:14. Electronically submitted by Octavio Tierney ([facility]). I personally scribed for PARAS MUNIZ DO ([facility]) on 07/12/24 at 21:56. Electronically submitted by Octavio Tierney ([facility]). PARAS MUNIZ DO Jul 12, 2024 20:19
[2024-07-12 20:25] LABS: Hematocrit 10.3 % (41.0-53.0); Mean Corpuscular Hgb Conc. 25.2 g/dL (32.0-36.0); Mean Corpuscular Volume 71.3 fL (80.0-100.0); Platelet Count (auto) 438 10^3/uL (140-450); Red Blood Cells 1.45 10^6/uL (4.5-5.90)
[2024-07-12 20:26] LABS: Red Cell Distribution Width 25.4 % (11.8-14.3)
[2024-07-12 20:36] LABS: Basophils % (manual) 0 (0.0-2.0); Blast Cells 0; Hemoglobin 2.6 g/dL (13.5-17.5); Metamyelocytes % 0; Myelocytes % 0; Promyelocytes % 0; Reactive Lymphocytes 0; White Blood Cell 75.5 10^3/uL (4.4-10.8)
[2024-07-12 20:39] LABS: Albumin 3.8 g/dL (3.2-4.8); Anion Gap 28.00001 (5-15); BUN/Creatinine Ratio 26.1 (10.0-20.0); Calcium 9.3 mg/dL (8.7-10.4); Magnesium 2.2 mg/dL (1.6-2.6); Potassium 4.1 mmol/L (3.5-5.1); Total Protein 6.9 g/dL (5.7-8.2)
--- NOTE | 2024-07-12 20:39 | DVH ---
CHEST RADIOGRAPH Indication: sob Technique: Single frontal view of the chest was obtained COMPARISON: Chest x-ray 01/25/2024 FINDINGS: Lines and Tubes: None Lungs: Clear Pleura: No effusion. No pneumothorax. Cardiomediastinal contours: Unremarkable Bones: Unremarkable IMPRESSION: No evidence of acute cardiopulmonary disease.
[2024-07-12 20:45] LABS: Alanine Aminotransferase 41 U/L (7-40); Alkaline Phosphatase 195 U/L (46-116); Aspartate Aminotransferase 63 U/L (13-40); Bilirubin, Total 2.9 mg/dL (0.2-1.0); Blood Urea Nitrogen 58 mg/dL (9-23); Chloride 93 mmol/L (98-107); Glucose 132 mg/dL (74-106); Sodium 131 mmol/L (136-145)
[2024-07-12 20:46] LABS: Carbon Dioxide < 10 mmol/L (20-31)
[2024-07-12 20:54] LABS: Lactic Acid w/Reflex 17.4 mmol/L (0.4-2.0)
[2024-07-12] MEDS: PANTOPRAZOLE 40 MG/10 ML VIAL INJ IV ONE (21:02)
[2024-07-12] MEDS: PIPERACILLIN-TAZOB 3.375GM 100 ML IV ONE (21:02)
[2024-07-12 21:06] LABS: Anisocytosis Moderate; Band Neutrophils % (manual) 5; Eosinophils % (manual) 1 (0-7); Hypochromia Moderate; Large Platelets FEW; Lymphocytes % (manual) 4 (10.0-50.0); Monocytes % (manual) 5 (0-12); Ovalocytes FEW; Platelet Estimate Adequa; Polychromasia Slight; Stomatocytes Few
[2024-07-12] MEDS ORDERED: PANTOPRAZOLE 40mg/50ML NS AE 50 ML IV ONE (21:15)
[2024-07-12 21:20] VITALS: BP 122/41; PULSE 124; RESP 17; TEMP 97.7
[2024-07-12 21:40] VITALS: BP 102/29; PULSE 124; RESP 16; TEMP 97.6
--- NOTE | 2024-07-12 21:53 | DVH ---
Exam: CT CT AB PEL WO CON-NO ORAL OR IV History: GI bleed, Comparison Study: None available at time of dictation. Technique: Multidetector spiral CT of the abdomen was performed from lung bases to pubic symphysis. I maging was performed without IV contrast. Axial, coronal and sagittal multiplanar reformats were obta ined from the axial data set by the technologist. Radiation Dose : 1. Abdomen/Pelvis: CTDIvol 5 mGy, DLP 305 mGy*cm. Findings: Evaluation of solid organs is limited due to lack of intravenous contrast use. Lung Bases: No acute or significant lung base finding. Normal heart size. No pleural or pericardial effusion. Diffuse wall thickening of the distal esophagus. Liver: Nodular contour. Gallbladder and Biliary Tree: Unremarkable Spleen: Unremarkable Pancreas: The pancreas is grossly normal in appearance. Adrenal Glands: Unremarkable Kidneys: Kidneys are grossly normal without calculi or hydronephrosis. Bladder: Grossly unremarkable for degree of distention. Bowel: The stomach is grossly normal in appearance. Small bowel and colon are normal in caliber and d istribution. Normal appendix is visualized in the right lower quadrant without findings of appendicit is. Ascites: Absent Lymphadenopathy: No mesenteric, retroperitoneal or periportal lymphadenopathy. Abdominal Wall and Mesentery: Unremarkable. Vasculature: The visualized abdominal aorta is normal in size and caliber. Evaluation of abdominal a nd pelvic vessels is limited due to lack of intravenous contrast. Perigastric and perisplenic varices . Pelvic Organs: Unremarkable Musculoskeletal: No aggressive focal bony lesions, acute fractures or dislocation. IMPRESSION: Cirrhosis with sequelae of portal hypertension which include perisplenic, perigastric, and periesopha geal varices. There is mild diffuse wall thickening of the distal esophagus which was not fully visu alized on this study.
[2024-07-12] MEDS ORDERED: NITROGLYCERIN 0.4 MG SL TAB SL PRN (22:00)
[2024-07-12] MEDS ORDERED: MORPHINE SULFATE INJ 2 MG/ml SYRG IV PRN (22:00)
[2024-07-12] MEDS ORDERED: ONDANSETRON HCL 4 MG/2 ML VIAL IV PRN (22:00)
[2024-07-12 22:14] LABS: INR 1.62 (0.9-1.15); Partial Thromboplastin Time 23.9 SEC (24.5-34.5); Prothrombin Time 16.4 sec (9.3-11.8)
[2024-07-12] MEDS: SODIUM CHLORIDE 0.9% 1,000 ML IV ONE (22:15)
[2024-07-12 23:27] VITALS: BP 110/55; PULSE 123; RESP 13; TEMP 97.7
[2024-07-12] MEDS: SODIUM CHLORIDE 0.9% 1,000 ML IV SCH (23:40)
[2024-07-12] MEDS: PANTOPRAZOLE 40mg/50ML NS AE 50 ML IV SCH (23:40)
[2024-07-12 23:45] VITALS: BP 122/65; PULSE 118; RESP 18; TEMP 97.6
[2024-07-13] VITALS (35 sets, daily range): BP systolic 112–149; BP diastolic 68–96; PULSE 86–131; RESP 12–24; TEMP 98–99.1; O2SAT 91–100
[2024-07-13] MEDS: OCTREOTIDE ACETATE 100 MCG/ML VL ONE (00:55)
[2024-07-13] MEDS: OCTREOTIDE ACETATE 100 MCG in SODIUM CHL 0.9% 50 ML IV ONE (01:15)
[2024-07-13] MEDS: OCTREOTIDE ACETATE 500 MCG in SODIUM CHL 0.9% 99 ML IV SCH (01:37)
[2024-07-13 02:20] LABS: Amphetamine Screen, Urine Neg (NEGATIVE); Barbiturate Scree,Urine Neg (NEGATIVE); Benzodiazephine Screen, Urine Neg (NEGATIVE); Cannabinoid Screen, Urine Neg (NEGATIVE); Cocaine Screen, Urine Neg (NEGATIVE); Opiate Scree,Urine Neg (NEGATIVE); Phencyclidine Screen, Urine Neg (NEGATIVE)
--- NOTE | 2024-07-13 03:21 | DVHHP2 ---
History of Present Illness Reason for Visit: GI bleed History of Present Illness 39-year-old male presents for evaluation of bleed. Patient with a history of liver alcoholic cirrhosis presents with a two day history of vomiting dark blood and having dark colored stools. Patient continues to drink last alcoholic drink being two days ago. Denies nausea or vomiting. No abdominal pain. No other acute symptoms. Past Medical History Liver cirrhosis, portal hypertension, Past Surgical History Denies Family History Noncontributory Smoke: No ALCOHOL: heavy Drugs: None Lives: with Family Review of Systems Review of Systems Review of systems are currently negative otherwise addressed in HPI. Allergies: Coded Allergies: NO KNOWN ALLERGIES (Unverified , 08/02/23) Medications Current Medications Medications Dose Ordered Sig/Kel Route Start Time Stop Time Status Last Admin Dose Admin Octreotide Acetate 500 mcg/ Sodium Chloride 100 ml @ 10 mls/hr Q10H IV 07/12/24 20:15 07/13/24 01:37 10 MLS/HR Sodium Chloride 1,000 ml @ 90 mls/hr Q11H7M IV 07/12/24 22:00 07/12/24 23:40 90 MLS/HR Piperacillin Sod/ Tazobactam Sod 100 ml @ 25 mls/hr Q8H IV 07/13/24 05:00 Pantoprazole Sodium 50 ml @ 10 mls/hr Q5H IV 07/12/24 22:00 07/12/24 23:40 10 MLS/HR Ondansetron HCl 4 mg Q4HP PRN IV 07/12/24 22:00 Nitroglycerin 0.4 mg Q5MINP PRN SL 07/12/24 22:00 Morphine Sulfate 2 mg Q30M PRN IV 07/12/24 22:00 Exam Vital Signs Vital Signs Date Time Temp Pulse Resp B/P (MAP) Pulse Ox O2 Delivery O2 Flow Rate FiO2 07/13/24 02:57 99.0 102 20 141/88 99.0 07/12/24 22:00 100 07/12/24 20:00 Oxymizer 6 N/A Exam Gen: 39-year-old male moderate distress Skin: Warm, dry, pale, no rash. HEENT: Normocephalic atraumatic, mucous membranes moist and pink. Neck: Cervical and supraclavicular nodes normal without enlargement, trachea is midline, thyroid gland is normal without masses. Pulmonary: Clear to auscultation and percussion bilaterally. Cardiac: Sinus tachycardia Abdomen: Soft, nontender, nondistended, bowel sounds present all 4 quadrants, no guarding, no rigidity, no organomegaly. Extremities: No cyanosis, clubbing, no edema Neuro: Cranial nerves II through XII grossly intact, normal affect and speech, no focal motor deficits. Labs/Xrays ORDERING PHYSICIAN: PARAS MUNIZ DO PROCEDURE(s): CXRP - CHEST PORTABLE REASON: sob ORDER NUMBER(s): [id number], ACCESSION NUMBER(s): [id number] CHEST RADIOGRAPH Indication: sob Technique: Single frontal view of the chest was obtained COMPARISON: Chest x-ray 01/25/2024 FINDINGS: Lines and Tubes: None Lungs: Clear Pleura: No effusion. No pneumothorax. Cardiomediastinal contours: Unremarkable Bones: Unremarkable IMPRESSION: No evidence of acute cardiopulmonary disease. RING PHYSICIAN: PARAS MUNIZ DO PROCEDURE(s): ABPL - CT AB PEL WO CON-NO ORAL OR IV REASON: GI bleed, ORDER NUMBER(s): [id number], ACCESSION NUMBER(s): [id number] Exam: CT CT AB PEL WO CON-NO ORAL OR IV History: GI bleed, Comparison Study: None available at time of dictation. Technique: Multidetector spiral CT of the abdomen was performed from lung bases to pubic symphysis. Imaging was performed without IV contrast. Axial, coronal and sagittal multiplanar reformats were obtained from the axial data set by the technologist. Radiation Dose : 1. Abdomen/Pelvis: CTDIvol 5 mGy, DLP 305 mGy*cm. Findings: Evaluation of solid organs is limited due to lack of intravenous contrast use. Lung Bases: No acute or significant lung base finding. Normal heart size. No pleural or pericardial effusion. Diffuse wall thickening of the distal esophagus. Liver: Nodular contour. Gallbladder and Biliary Tree: Unremarkable Spleen: Unremarkable Pancreas: The pancreas is grossly normal in appearance. Adrenal Glands: Unremarkable Kidneys: Kidneys are grossly normal without calculi or hydronephrosis. Bladder: Grossly unremarkable for degree of distention. Bowel: The stomach is grossly normal in appearance. Small bowel and colon are normal in caliber and distribution. Normal appendix is visualized in the right lower quadrant without findings of appendicitis. Ascites: Absent Lymphadenopathy: No mesenteric, retroperitoneal or periportal lymphadenopathy. Abdominal Wall and Mesentery: Unremarkable. Vasculature: The visualized abdominal aorta is normal in size and caliber. Evaluation of abdominal and pelvic vessels is limited due to lack of intravenous contrast. Perigastric and perisplenic varices. Pelvic Organs: Unremarkable Musculoskeletal: No aggressive focal bony lesions, acute fractures or dislocation. IMPRESSION: Cirrhosis with sequelae of portal hypertension which include perisplenic, perigastric, and periesophageal varices. There is mild diffuse wall thickening of the distal esophagus which was not fully visualized on this study. Labs Test 07/13/24 01:30 07/12/24 21:32 07/12/24 21:30 07/12/24 20:10 Range/Units Urine Opiates Screen Neg NEGATIVE Urine Fentanyl Screen Neg NEGATIVE Urine Barbiturates Screen Neg NEGATIVE Urine Phencyclidine Screen Neg NEGATIVE Urine Amphetamines Screen Neg NEGATIVE Urine Benzodiazepines Screen Neg NEGATIVE Urine Cocaine Screen Neg NEGATIVE Urine Cannabinoids Screen Neg NEGATIVE Blood Gas Specimen Type Arterial Blood Gas Sample Site Right radial Blood Gas Patient Temperature 37.0 Arterial Blood Date Drawn [id number] Arterial Blood pH 7.259 L 7.350-7.450 Arterial Blood Partial Pressure CO2 22.3 L 35.0-48.0 mmHg Arterial Blood Partial Pressure O2 50.7 *L 83.0-108.0 mmHg Arterial Blood HCO3 9.8 L 21.0-28.0 mmol/L Ike Test Yes Blood Gas Total Hemoglobin < 4.90 *L 13.5-17.5 g/dL Blood Gas Liter Flow 6.00 Blood Gas Modality Oxymizer FiO2 % 52.0 Blood Gas Critical Value Read Back Yes Blood Gas Notified Whom Purse Framer pike Blood Gas Notified Time [id number] Blood Gas Notified By Funeral Service Apprentice nay magallanes Lactic Acid Level 14.0 *H 0.4-2.0 mmol/L Troponin I High Sensitivity 58 *H </=54 ng/L Plasma/Serum Blood Alcohol < 3.0 <10 mg/dL Prothrombin Time 16.4 H 9.3-11.8 sec Prothrombin Time INR 1.62 H 0.9-1.15 Activated Partial Thromboplast Time 23.9 L 24.5-34.5 SEC Test 07/12/24 20:09 Range/Units White Blood Count 75.5 *H 4.4-10.8 10^3/uL Red Blood Count 1.45 L 4.5-5.90 10^6/uL Hemoglobin 2.6 *L 13.5-17.5 g/dL Hematocrit 10.3 L 41.0-53.0 % Mean Corpuscular Volume 71.3 L 80.0-100.0 fL Mean Corpuscular Hemoglobin 18.0 L 28.0-32.0 pg Mean Corpuscular Hemoglobin Concent 25.2 L 32.0-36.0 g/dL Red Cell Distribution Width 25.4 H 11.8-14.3 % Platelet Count 438 140-450 10^3/uL Mean Platelet Volume 7.9 6.9-10.8 fL Neutrophils (%) (Auto) 37.0-80.0 % Lymphocytes (%) (Auto) 10.0-50.0 % Monocytes (%) (Auto) 0.0-12.0 % Basophils (%) (Auto) 0.0-2.0 % Neutrophils # (Auto) 1.6-8.6 10 ^3/uL Lymphocytes # (Auto) 0.4-5.4 10 ^3/uL Monocytes # (Auto) 0-1.3 10 ^3/uL Differential Total Cells Counted 100.0 100 Neutrophils % (Manual) 85 H 37.0-80.0 Band Neutrophils % (Manual) 5 Lymphocytes % (Manual) 4 L 10.0-50.0 Monocytes % (Manual) 5 0-12 Eosinophils % (Manual) 1 0-7 Basophils % (Manual) 0 0.0-2.0 Metamyelocytes % (manual) 0 Myelocytes % (Manual) 0 Promyelocytes % (Manual) 0 Blast Cells % (Manual) 0 Reactive Lymphocytes 0 Platelet Estimate [place] Large Platelets Few Polychromasia Slight Hypochromasia (manual) Moderate Poikilocytosis (manual) Moderate Anisocytosis (manual) Moderate Microcytosis Moderate Ovalocytes Few Stomatocytes Few Sid Cells Few Schistocytes Few Sodium Level 131 L 136-145 mmol/L Potassium Level 4.1 3.5-5.1 mmol/L Chloride Level 93 L 98-107 mmol/L Carbon Dioxide Level < 10 *L 20-31 mmol/L Anion Gap 28.90719 H 5-15 Blood Urea Nitrogen 58 H 9-23 mg/dL Creatinine 2.22 H 0.700-1.30 mg/dL Glomerular Filtration Rate Calc 38 >90 mL/min BUN/Creatinine Ratio 26.1 H 10.0-20.0 Serum Glucose 132 H 74-106 mg/dL Calcium Level 9.3 8.7-10.4 mg/dL Magnesium Level 2.2 1.6-2.6 mg/dL Total Bilirubin 2.9 H 0.2-1.0 mg/dL Aspartate Amino Transferase (AST) 63 H 13-40 U/L Alanine Aminotransferase (ALT) 41 H 7-40 U/L Alkaline Phosphatase 195 H 46-116 U/L B-Type Natriuretic Peptide 69.82 0-100 pg/mL Total Protein 6.9 5.7-8.2 g/dL Albumin 3.8 3.2-4.8 g/dL Assessment/Plan Assessment/Plan Assessment GI bleed Symptomatic anemia Questionable sepsis Leukocytosis Acute renal failure Liver cirrhosis Esophageal varices Admit the patient to [facility] to the hospitalist Transfuse 4 units of packed red cells, 1 unit of FFP and repeat coagulopathy factors and H&H Continue Protonix and octreotide drip GI consultation NPO Continue treatment per orders Total critical care time excluding procedures performed this 55 minutes. Plan discussed with: Patient My Orders Orders - PIKEESPERANZA YARBROUGH AGACNP Procedure Category Date Status Time Abg W/ Co-Ox RT 07/12/24 Logged 21:18 Sodium Chloride 0.9% PHA 07/12/24 In Process 22:00 Pantoprazole PHA 07/12/24 In Process 40mg/50ml Ns Ae 22:00 Admit ADMIT 07/12/24 Transmitted 21:55 Ondansetron Hcl PHA 07/12/24 In Process (Zofran) 22:00 Complete Blood Count LAB 07/13/24 Logged 04:00 Comprehensive LAB 07/13/24 Logged Metabolic Panel 04:00 Npo (Nothing By DIET 07/13/24 Transmitted Mouth) Diet Breakfast Condition: Critical BOUCHRA 07/12/24 In Process 21:55 Bedrest With Bathroom BOUCHRA 07/12/24 In Process Privileg 21:55 Nitroglycerin PHA 07/12/24 In Process Sublingual (Ntrostat 22:00 Morphine Sulfate PHA 07/12/24 In Process Injection 22:00 Stat Ekg For Chest BOUCHRA 07/12/24 In Process Pain 21:55 Notify Md Of Changes BOUCHRA 07/12/24 In Process From Base 21:55 Parts Analyst For BOUCHRA 07/12/24 In Process 24 Hours 21:55 Emergency Dysrhythmia BOUCHRA 07/12/24 In Process Protocol 21:55 Rhythm Strips Once BOUCHRA 07/12/24 In Process Every Shift 21:55 Oxygen By Nasal RT 07/12/24 Transmitted Cannula 21:55 Piperacillin-Tazob PHA 07/13/24 In Process 3.375gm (Zosyn 3.375g 05:00 Mrsa Screen MARCO 07/13/24 Logged 01:06 Date of Service: Jul 12, 2024 Billing Provider: ESPERANZA PIKE Common Visit Codes: [id number] CARE 30-74 MIN ESPERANZA PIKE Jul 13, 2024 03:21
[2024-07-13] MEDS: PIPERACILLIN-TAZOB 3.375GM 100 ML IV SCH (05:14)
[2024-07-13 06:42] LABS: Urine Bacteria None Seen /hpf (None Seen)
[2024-07-13 06:58] LABS: Urine Blood TRACE /uL (Negative); Urine Clarity Turbid (Clear); Urine Color Yellow (Yellow); Urine Hyaline Cast FEW /lpf (0 - 2); Urine Mucus FEW (None Seen); Urine Protein, UAD TRACE (Negative); Urine Specific Gravity 1.016 (1.001-1.035); Urine Squamous Epithelial Cell FEW /hpf (<5); Urine Urobilinogen Normal (Negative); Urine WBC 7 /HPF (0-3); Urine pH 5.5 (5.0-9.0)
[2024-07-13] MEDS ORDERED: LORazepam 2MG/ML-1ML VIAL IV PRN (13:00)
[2024-07-13] MEDS: FOLIC ACID 1 MG in D5W 5% 50 ML INJ ONE (13:00)
[2024-07-13] MEDS: SODIUM CHLORIDE 0.9% 2,000 ML IV ONE (13:00)
[2024-07-13] MEDS: THIAMINE 100mg/ml INJ (200mg/2ml VIAL) IV ONE (13:00)
--- NOTE | 2024-07-13 13:09 | DVHINCON2 ---
Date of service: Jul 13, 2024 Referring Physician Opal Reason for Consultation Cirrhosis GI bleeding History of Present Illness The patient is a 39-year-old male with alcoholic cirrhosis, still drinking alcohol, decompensations including transaminitis, hyperbilirubinemia, varices, portal hypertension, portal hypertensive gastropathy admitted with severe anemia with a hemoglobin of 2, lactic acidosis with a value of 17, leukocytosis and sepsis with a white count of 75 K, with GI bleeding with hematemesis and melena for several days. Patient was admitted to telemetry unit, transfused approximately 4 units of packed red cells, started on Protonix drip and Sandostatin drip, and GI consultation was obtained. Patient denies any abdominal pain. He denies any melena. Patient was on Carafate and a proton pump inhibitor and he stopped a month ago as he ran out. He has not been following up with Gastroenterology as an outpatient. Patient underwent endoscopy last October showing trace esophageal varices portal hypertensive gastropathy, duodenitis, and hiatal hernia. Past Medical History As above Past Surgical History Denies Family History: Patient reports no known family medical history. Family History No gastrointestinal diseases or malignancies Allergies: Coded Allergies: NO KNOWN ALLERGIES (Unverified , 08/02/23) Home Meds Active Scripts Pantoprazole Sodium Sesquihydr (Protonix) 40 Mg Tab, 40 MG PO BID for 30 Days, #60 TAB Prov:JOHN YI ADJUSTMENT CLERK 11/09/23 Sucralfate (CARAFATE) 1 Gm Tab, 1 GM PO ACHS for 30 Days, #120 TAB Prov:JOHN YI ADJUSTMENT CLERK 11/09/23 Current Medications Current Medications Medications (Trade) Dose Ordered Sig/Kel Route PRN Reason Start Time Stop Time Status Last Admin Octreotide Acetate 500 mcg/ Sodium Chloride 100 ml @ 10 mls/hr Q10H IV 07/12/24 20:15 07/13/24 11:28 Sodium Chloride 1,000 ml @ 90 mls/hr Q11H7M IV 07/12/24 22:00 07/13/24 09:16 Piperacillin Sod/ Tazobactam Sod 100 ml @ 25 mls/hr Q8H IV 07/13/24 05:00 07/13/24 05:14 Pantoprazole Sodium 50 ml @ 10 mls/hr Q5H IV 07/12/24 22:00 07/13/24 11:28 Ondansetron HCl (Zofran) 4 mg Q4HP PRN IV NAUSEA / VOMITING 07/12/24 22:00 Nitroglycerin (Ntrostat Sublingual) 0.4 mg Q5MINP PRN SL FOR CHEST PAIN 07/12/24 22:00 Morphine Sulfate 2 mg Q30M PRN IV FOR CHEST PAIN 07/12/24 22:00 Review of Systems General: Denies fevers or chills Head and neck: Denies headaches or dizziness Cardiac: Denies chest pain Pulmonary: Denies cough wheeze or shortness of breath GI: See HPI : No dysuria or hematuria Rheumatology: No arthralgias or myalgias Psych: Denies psychosis or depression Endo: Denies diabetes or hypothyroidism Skin: Has pruritus denies rashes Vital Signs Vital Signs Date Time Temp Pulse Resp B/P (MAP) Pulse Ox O2 Delivery O2 Flow Rate FiO2 07/13/24 12:00 98.4 90 17 127/80 (96) 97 98.4 07/13/24 08:00 Oxymizer 6 N/A Physical Exam General: Alert and oriented lying in bed no distress, flat affect HEENT: NC/AT EOMI PERRLA O/P clear +scleral icterus Heart: Regular rate and rhythm Lungs: Clear to auscultation anterior Abdomen: Soft, nontender, nondistended Extremity: No clubbing cyanosis or edema Labs/Diagnostic Data Labs Test 07/13/24 12:45 07/13/24 01:30 07/12/24 21:32 07/12/24 21:30 Range/Units Urine Color Yellow Yellow Urine Clarity Turbid H Clear Urine pH 5.5 5.0-9.0 Urine Specific [place] 1.016 1.001-1.035 Urine Protein Trace H Negative Urine Ketones Trace Negative Urine Blood Trace H Negative /uL Urine Nitrite Negative Negative Urine Bilirubin Negative Negative Urine Urobilinogen Normal Negative mg/dL Urine Leukocyte Esterase Negative Negative /uL Urine RBC 1 0 - 3 /hpf Urine Microscopic WBC 7 H 0-3 /HPF Urine Squamous Epithelial Cells Few <5 /hpf Urine Bacteria None seen None Seen /hpf Urine Hyaline Casts Few 0 - 2 /lpf Urine Mucus Few None Seen Urine Glucose Trace Normal mg/dL Urine Opiates Screen Neg NEGATIVE Urine Fentanyl Screen Neg NEGATIVE Urine Barbiturates Screen Neg NEGATIVE Urine Phencyclidine Screen Neg NEGATIVE Urine Amphetamines Screen Neg NEGATIVE Urine Benzodiazepines Screen Neg NEGATIVE Urine Cocaine Screen Neg NEGATIVE Urine Cannabinoids Screen Neg NEGATIVE Blood Gas Specimen Type Arterial Blood Gas Sample Site Right radial Blood Gas Patient Temperature 37.0 Arterial Blood Date Drawn [id number] Arterial Blood pH 7.259 L 7.350-7.450 Arterial Blood Partial Pressure CO2 22.3 L 35.0-48.0 mmHg Arterial Blood Partial Pressure O2 50.7 *L 83.0-108.0 mmHg Arterial Blood HCO3 9.8 L 21.0-28.0 mmol/L Ike Test Yes Blood Gas Total Hemoglobin < 4.90 *L 13.5-17.5 g/dL Blood Gas Liter Flow 6.00 Blood Gas Modality Oxymizer FiO2 % 52.0 Blood Gas Critical Value Read Back Yes Blood Gas Notified Whom Coil Winder pearl Blood Gas Notified Time [id number] Blood Gas Notified By Harnessmaker nay magallanes Lactic Acid Level 14.0 *H 0.4-2.0 mmol/L Plasma/Serum Blood Alcohol < 3.0 <10 mg/dL Test 07/12/24 20:10 07/12/24 20:09 Range/Units Prothrombin Time 16.4 H 9.3-11.8 sec Prothrombin Time INR 1.62 H 0.9-1.15 Activated Partial Thromboplast Time 23.9 L 24.5-34.5 SEC Differential Total Cells Counted 100.0 100 Neutrophils % (Manual) 85 H 37.0-80.0 Band Neutrophils % (Manual) 5 Lymphocytes % (Manual) 4 L 10.0-50.0 Monocytes % (Manual) 5 0-12 Eosinophils % (Manual) 1 0-7 Basophils % (Manual) 0 0.0-2.0 Metamyelocytes % (manual) 0 Myelocytes % (Manual) 0 Promyelocytes % (Manual) 0 Blast Cells % (Manual) 0 Reactive Lymphocytes 0 Platelet Estimate [place] Large Platelets Few Polychromasia Slight Hypochromasia (manual) Moderate Poikilocytosis (manual) Moderate Anisocytosis (manual) Moderate Microcytosis Moderate Ovalocytes Few Stomatocytes Few [place] Cells Few Schistocytes Few Magnesium Level 2.2 1.6-2.6 mg/dL IMPRESSION: Cirrhosis with sequelae of portal hypertension which include perisplenic, perigastric, and periesophageal varices. There is mild diffuse wall thickening of the distal esophagus which was not fully visualized on this study.B-Type Natriuretic Peptide 69.82 0-100 pg/mL Assessment # leukocytosis with suspected sepsis # cirrhosis # GI bleed # anemia # lactic acidosis # coagulopathy # acute renal insufficiency Problems(with codes): (1) Blood loss anemia (2) Upper GI bleed (3) Alcoholic liver disease (4) Alcohol withdrawal (5) Portal hypertension (6) Dehydration (7) Acute renal insufficiency Plan/Recommendation 1. Continue with Protonix and Sandostatin drip 2. Follow H&H and transfuse to keep hemoglobin above seven 3. Clear liquid diet 4. Antibiotics 5. Patient will need EGD with Dr. Berman 6. Monitor labs 7. Alcohol cessation counseling Plan discussed with: Patient GLORIA MUÑOZ MD Jul 13, 2024 13:09
[2024-07-13 13:13] LABS: Basophils # (auto) 0 10 ^3/uL (0-0.2); Eosinophils # (auto) 0.1 10 ^3/uL (0-0.8); Eosinophils % (auto) 0.3 % (0.0-7.0); Hemoglobin 7.1 g/dL (13.5-17.5); Mean Corpuscular Volume 83.4 fL (80.0-100.0); Nucleated Red Blood Cells % 0.2 %
--- NOTE | 2024-07-13 13:14 | DVHPN2 ---
Assessment/Plan Assessment/Plan Progress note 39 M with alcoholic cirrhosis admitted for UGIB seen today during rounds. Reported cutting back on drinking but still drinks. seen by GI. received 4 unit RBC and 1 FFp. Physical exam aox3 clear breath sounds s1 s2 rrr no murmur abdomen distended, mildly tender, hepatomegaly no le edema labs ekg imaging reviewed assessment and plan hemorrhagic shock UGIB likely variecal bleed alcoholic cirrhosis NANDO VMN leukocytosis lactic acidosis hyponatremia microcytic anemia thickening of distal esophagus? alcohol use MTP if in shock pressor maintain MAP >65 protonix and octreotide IV bolus, PRBC maintain hb >7 iv thiamine folate blood smear vanc and zosyn GI consult appreciated, stablize prior to scope resources for alcohol use CIWA protocol diet clear liquid dvt ppx none gi ppx on protonix drip full code decision maker owenluis desir ([phone]) prognosis poor condition critical critical care time 60 minutes Plan discussed with: Patient Date of Service: Jul 13, 2024 Billing Provider: RAJINDER CARREON MD Common Visit Codes: [id number] CARE 30-74 MIN RAJINDER CARREON MD Jul 13, 2024 13:14
[2024-07-13 13:15] LABS: Basophils % (auto) 0.1 % (0.0-2.0); Lymphocytes # (auto) 1.7 10 ^3/uL (0.4-5.4); Lymphocytes % (auto) 6.3 % (10.0-50.0); Mean Corpuscular Hemoglobin 25.8 pg (28.0-32.0); Mean Corpuscular Hgb Conc. 30.9 g/dL (32.0-36.0); Monocytes # (auto) 1.6 10 ^3/uL (0-1.3); Monocytes % (auto) 5.9 % (0.0-12.0); Neutrophils % (auto) 87.4 % (37.0-80.0); Platelet Count (auto) 175 10^3/uL (140-450); Red Blood Cells 2.76 10^6/uL (4.5-5.90); White Blood Cell 27.4 10^3/uL (4.4-10.8)
[2024-07-13 13:16] LABS: Red Cell Distribution Width 22.6 % (11.8-14.3)
[2024-07-13 13:39] LABS: Anion Gap 8 (5-15); Carbon Dioxide 22 mmol/L (20-31); Chloride 106 mmol/L (98-107); Glucose 105 mg/dL (74-106); Potassium 3.8 mmol/L (3.5-5.1)
[2024-07-13 13:42] LABS: Alanine Aminotransferase 48 U/L (7-40); Albumin 3.1 g/dL (3.2-4.8); Alkaline Phosphatase 140 U/L (46-116); Aspartate Aminotransferase 93 U/L (13-40); Bilirubin, Total 4.8 mg/dL (0.2-1.0); Blood Urea Nitrogen 32 mg/dL (9-23); Calcium 7.9 mg/dL (8.7-10.4); Sodium 136 mmol/L (136-145); Total Protein 5.7 g/dL (5.7-8.2)
[2024-07-13 14:11] LABS: Anisocytosis Slight; Ovalocytes FEW; Platelet Estimate Adequate; Tear Drop Cells FEW
[2024-07-13] MEDS: ACCU-CHEK COMFORT CURVE STRIP VI SCH (18:01)
--- NOTE | 2024-07-13 19:29 | DVHINCON2 ---
Date of service: Jul 13, 2024 Referring Physician Javad Knutson NP Reason for Consultation Acute hypoxic respiratory failure History of Present Illness A 39-year-old man with PMHx of liver cirrhosis and portal hypertension who presented to ED on 07/12/24 for 2-day history of vomiting dark blood and having dark colored stools. Patient continues to drink, last alcoholic drink being two days prior to presentation. Denied nausea or vomiting. No abdominal pain. No other acute symptoms. Patient was admitted for further care and pulmonary consultation is requested for evaluation and management of acute hypoxic respiratory failure Review of Systems: 14-point review of systems negative unless otherwise noted above. Past Medical History: Liver cirrhosis, portal hypertension, anemia. Past Surgical History: None Medications: Reviewed. Allergies: No known drug allergies. Family History: No family history of premature CAD. No family history of lung disorders. Social History: Nonsmoker. Heavy alcohol use. No illicit drug use. Family History: Patient reports no known family medical history. Allergies: Coded Allergies: NO KNOWN ALLERGIES (Unverified , 08/02/23) Home Meds Active Scripts Pantoprazole Sodium Sesquihydr (Protonix) 40 Mg Tab, 40 MG PO BID for 30 Days, #60 TAB Prov:JOHN YI TRACKMOBILE OPERATOR 11/09/23 Sucralfate (CARAFATE) 1 Gm Tab, 1 GM PO ACHS for 30 Days, #120 TAB Prov:JOHN YI TRACKMOBILE OPERATOR 11/09/23 Current Medications Current Medications Medications (Trade) Dose Ordered Sig/Kel Route PRN Reason Start Time Stop Time Status Last Admin Octreotide Acetate 500 mcg/ Sodium Chloride 100 ml @ 10 mls/hr Q10H IV 07/12/24 20:15 07/13/24 18:02 Sodium Chloride 1,000 ml @ 90 mls/hr Q11H7M IV 07/12/24 22:00 07/13/24 09:16 Piperacillin Sod/ Tazobactam Sod 100 ml @ 25 mls/hr Q8H IV 07/13/24 05:00 07/13/24 13:00 Pantoprazole Sodium 50 ml @ 10 mls/hr Q5H IV 07/12/24 22:00 07/13/24 18:02 Ondansetron HCl (Zofran) 4 mg Q4HP PRN IV NAUSEA / VOMITING 07/12/24 22:00 Nitroglycerin (Ntrostat Sublingual) 0.4 mg Q5MINP PRN SL FOR CHEST PAIN 07/12/24 22:00 07/13/24 13:14 DC Morphine Sulfate 2 mg Q30M PRN IV FOR CHEST PAIN 07/12/24 22:00 07/13/24 13:14 DC Thiamine HCl 100 mg DAILY IV 07/14/24 10:00 Folic Acid 1 mg/ Dextrose 50.2 ml @ 200.8 mls/ hr DAILY INJ 07/14/24 10:00 Diagnostic Test (Pha) (Accu-Chek Comfort Curve T) 1 strip Q6HR 07/13/24 18:00 07/13/24 18:01 Lorazepam (Ativan Inj) 1 mg Q2HPRN PRN IV ETOH-SEE PROTOCOL 07/13/24 13:00 Vital Signs Vital Signs Date Time Temp Pulse Resp B/P (MAP) Pulse Ox O2 Delivery O2 Flow Rate FiO2 07/13/24 18:00 89 20 118/72 (87) 93 07/13/24 16:00 98.5 98.5 07/13/24 08:00 Oxymizer 6 N/A Physical Exam Gen.: Patient lying in bed in no apparent distress. Breathing on room air. Head: Normocephalic, atraumatic. Eyes: EOMI/PERRLA. Ears: Normal hearing. Normal anatomy. Neck/trachea: Trachea midline, supple. Nose: Normal external anatomy. Mouth: Moist mucous membranes. Chest: Decreased air entry bilaterally. No wheezing or rhonchi. Cardiovascular: Positive S1, positive S2. Regular rate and rhythm. Abdomen: Positive bowel sounds in all 4 quadrants. Soft, non-tender, non- distended. : Deferred. Rectal: Deferred. Skin: Warm, dry. Intact. Extremities: 2+ radial pulses bilaterally. No lower extremity edema. Neuro: Awake, alert, oriented x3. No gross motor or sensory deficits. Cranial nerves II through XII intact. Gait not assessed. Labs/Diagnostic Data Labs Test 07/13/24 18:00 07/13/24 12:45 07/13/24 01:30 07/12/24 21:32 Range/Units POC Glucose 102 70-106 mg/dl White Blood Count 27.4 #H 4.4-10.8 10^3/uL Red Blood Count 2.76 L 4.5-5.90 10^6/uL Hemoglobin 7.1 #L 13.5-17.5 g/dL Hematocrit 23.0 #L 41.0-53.0 % Mean Corpuscular Volume 83.4 # 80.0-100.0 fL Mean Corpuscular Hemoglobin 25.8 L 28.0-32.0 pg Mean Corpuscular Hemoglobin Concent 30.9 L 32.0-36.0 g/dL Red Cell Distribution Width 22.6 H 11.8-14.3 % Platelet Count 175 # 140-450 10^3/uL Mean Platelet Volume 8.1 6.9-10.8 fL Neutrophils (%) (Auto) 87.4 H 37.0-80.0 % Lymphocytes (%) (Auto) 6.3 L 10.0-50.0 % Monocytes (%) (Auto) 5.9 0.0-12.0 % Eosinophils (%) (Auto) 0.3 0.0-7.0 % Basophils (%) (Auto) 0.1 0.0-2.0 % Neutrophils # (Auto) 24.0 H 1.6-8.6 10 ^3/uL Lymphocytes # (Auto) 1.7 0.4-5.4 10 ^3/uL Monocytes # (Auto) 1.6 H 0-1.3 10 ^3/uL Eosinophils # (Auto) 0.1 0-0.8 10 ^3/uL Basophils # (Auto) 0 0-0.2 10 ^3/uL Nucleated Red Blood Cells 0.2 % Platelet Estimate Adequate Anisocytosis (manual) Slight Tear Drop Cells Few Ovalocytes Few [place] Cells Sodium Level 136 # 136-145 mmol/L Potassium Level 3.8 3.5-5.1 mmol/L Chloride Level 106 # 98-107 mmol/L Carbon Dioxide Level 22 # 20-31 mmol/L Anion Gap 8 5-15 Blood Urea Nitrogen 32 #H 9-23 mg/dL Creatinine 0.97 0.700-1.30 mg/dL Glomerular Filtration Rate Calc 103 >90 mL/min BUN/Creatinine Ratio 33.0 H 10.0-20.0 Serum Glucose 105 74-106 mg/dL Calcium Level 7.9 L 8.7-10.4 mg/dL Total Bilirubin 4.8 H 0.2-1.0 mg/dL Aspartate Amino Transferase (AST) 93 H 13-40 U/L Alanine Aminotransferase (ALT) 48 H 7-40 U/L Alkaline Phosphatase 140 H 46-116 U/L Troponin I High Sensitivity 79 *H </=54 ng/L Total Protein 5.7 5.7-8.2 g/dL Albumin 3.1 L 3.2-4.8 g/dL Urine Color Yellow Yellow Urine Clarity Turbid H Clear Urine pH 5.5 5.0-9.0 Urine Specific [place] 1.016 1.001-1.035 Urine Protein Trace H Negative Urine Ketones Trace Negative Urine Blood Trace H Negative /uL Urine Nitrite Negative Negative Urine Bilirubin Negative Negative Urine Urobilinogen Normal Negative mg/dL Urine Leukocyte Esterase Negative Negative /uL Urine RBC 1 0 - 3 /hpf Urine Microscopic WBC 7 H 0-3 /HPF Urine Squamous Epithelial Cells Few <5 /hpf Urine Bacteria None seen None Seen /hpf Urine Hyaline Casts Few 0 - 2 /lpf Urine Mucus Few None Seen Urine Glucose Trace Normal mg/dL Urine Opiates Screen Neg NEGATIVE Urine Fentanyl Screen Neg NEGATIVE Urine Barbiturates Screen Neg NEGATIVE Urine Phencyclidine Screen Neg NEGATIVE Urine Amphetamines Screen Neg NEGATIVE Urine Benzodiazepines Screen Neg NEGATIVE Urine Cocaine Screen Neg NEGATIVE Urine Cannabinoids Screen Neg NEGATIVE Blood Gas Specimen Type Arterial Blood Gas Sample Site Right radial Blood Gas Patient Temperature 37.0 Arterial Blood Date Drawn [id number] Arterial Blood pH 7.259 L 7.350-7.450 Arterial Blood Partial Pressure CO2 22.3 L 35.0-48.0 mmHg Arterial Blood Partial Pressure O2 50.7 *L 83.0-108.0 mmHg Arterial Blood HCO3 9.8 L 21.0-28.0 mmol/L Ike Test Yes Blood Gas Total Hemoglobin < 4.90 *L 13.5-17.5 g/dL Blood Gas Liter Flow 6.00 Blood Gas Modality Oxymizer FiO2 % 52.0 Blood Gas Critical Value Read Back Yes Blood Gas Notified Whom Nacho knutson Blood Gas Notified Time [id number] Blood Gas Notified By Die Casting Supervisor nay magallanes Test 07/12/24 21:30 07/12/24 20:10 07/12/24 20:09 Range/Units Lactic Acid Level 14.0 *H 0.4-2.0 mmol/L Plasma/Serum Blood Alcohol < 3.0 <10 mg/dL Prothrombin Time 16.4 H 9.3-11.8 sec Prothrombin Time INR 1.62 H 0.9-1.15 Activated Partial Thromboplast Time 23.9 L 24.5-34.5 SEC Differential Total Cells Counted 100.0 100 Neutrophils % (Manual) 85 H 37.0-80.0 Band Neutrophils % (Manual) 5 Lymphocytes % (Manual) 4 L 10.0-50.0 Monocytes % (Manual) 5 0-12 Eosinophils % (Manual) 1 0-7 Basophils % (Manual) 0 0.0-2.0 Metamyelocytes % (manual) 0 Myelocytes % (Manual) 0 Promyelocytes % (Manual) 0 Blast Cells % (Manual) 0 Reactive Lymphocytes 0 Large Platelets Few Polychromasia Slight Hypochromasia (manual) Moderate Poikilocytosis (manual) Moderate Microcytosis Moderate Stomatocytes Few Schistocytes Few Magnesium Level 2.2 1.6-2.6 mg/dL B-Type Natriuretic Peptide 69.82 0-100 pg/mL Assessment Impression: Acute hypoxic respiratory failure ETOH use Liver cirrhosis Anemia Leukocytosis Plan: Weaned off oxygen, on room air Supplemental oxygen PRN Transfuse 4 units of PRBC Monitor hemoglobin and hematocrit Monitor WBC CIWA protocol Counseled against ETOH abuse. Protonix drip Sandostatin drip Followup GI recommendations. Continue antibiotics Monitor renal function. Monitor electrolytes. Supplement as necessary. Monitor ins and outs. DVT prophylaxis. Prognosis: Poor given patient's multiple co-morbidities. Rest of plan per hospitalist and other consultants. Thank you, NACHO Knutson, for allowing me to participate in this patient's care. Further recommendations will depend on the patient's clinical course. Please do not hesitate to contact me if you have any questions or concerns. This medical document was created using an electronic medical record system with [email or web address] dictation system. Although these documentations are being carefully reviewed, there may still be some phonetic and typographical changes. The errors are purely typographical, due to imperfection on the software program, and do not reflect any compromise in the patient's medical care. Plan discussed with: Patient, Other (RN/NACHO Knutson/) BRITTON ETIENNE MD Jul 13, 2024 19:29
[2024-07-13 19:54] LABS: Hematocrit 21.7 % (41.0-53.0)
[2024-07-13 19:58] LABS: Hemoglobin 6.9 g/dL (13.5-17.5)
[2024-07-13 21:23] LABS: Basophils # (auto) 0.1 10 ^3/uL (0-0.2); Basophils % (auto) 0.4 % (0.0-2.0); Monocytes # (auto) 1.2 10 ^3/uL (0-1.3); Monocytes % (auto) 6.7 % (0.0-12.0); Nucleated Red Blood Cells % 0.1 %
[2024-07-13 21:25] LABS: Eosinophils # (auto) 0.3 10 ^3/uL (0-0.8); Eosinophils % (auto) 1.6 % (0.0-7.0); Hematocrit 20.6 % (41.0-53.0); Lymphocytes # (auto) 1.5 10 ^3/uL (0.4-5.4); Lymphocytes % (auto) 8.5 % (10.0-50.0); Mean Corpuscular Hemoglobin 26.7 pg (28.0-32.0); Mean Corpuscular Hgb Conc. 32.2 g/dL (32.0-36.0); Neutrophils # (auto) 14.9 10 ^3/uL (1.6-8.6); Neutrophils % (auto) 82.8 % (37.0-80.0); Platelet Count (auto) 151 10^3/uL (140-450); Red Blood Cells 2.48 10^6/uL (4.5-5.90)
[2024-07-13 21:35] LABS: Red Cell Distribution Width 22.6 % (11.8-14.3)
[2024-07-13 21:38] LABS: Hemoglobin 6.6 g/dL (13.5-17.5)
[2024-07-13 21:59] LABS: INR 1.3 (0.9-1.15); Prothrombin Time 13.4 sec (9.3-11.8)
[2024-07-14] VITALS (29 sets, daily range): BP systolic 114–164; BP diastolic 65–100; PULSE 80–109; RESP 13–24; TEMP 98.2–99.3; O2SAT 92–98
[2024-07-14 05:46] LABS: Hematocrit 25.1 % (41.0-53.0); Hemoglobin 8.1 g/dL (13.5-17.5)
--- NOTE | 2024-07-14 07:23 | ECG ---
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
[2024-07-14] MEDS: THIAMINE 100mg/ml INJ (200mg/2ml VIAL) IV SCH (10:35)
[2024-07-14] MEDS: FOLIC ACID 1 MG in D5W 5% 50 ML INJ SCH (10:36)
[2024-07-14 12:24] LABS: Hematocrit 26.4 % (41.0-53.0); Hemoglobin 8.6 g/dL (13.5-17.5)
--- NOTE | 2024-07-14 13:37 | DVHPN2 ---
Assessment/Plan Assessment/Plan Progress note 39 M with alcoholic cirrhosis admitted for UGIB seen today during rounds. plan for scope tomorrow per GI Physical exam aox3 clear breath sounds s1 s2 rrr no murmur abdomen distended, mildly tender, hepatomegaly no le edema labs ekg imaging reviewed assessment and plan hemorrhagic shock UGIB likely variecal bleed alcoholic cirrhosis NANDO VMN leukocytosis lactic acidosis hyponatremia microcytic anemia thickening of distal esophagus? alcohol use MTP if in shock pressor maintain MAP >65 protonix and octreotide IV bolus, PRBC maintain hb >7 iv thiamine folate blood smear vanc and zosyn GI consult appreciated, stablize prior to scope resources for alcohol use CIWA protocol diet clear liquid dvt ppx none gi ppx on protonix drip full code decision maker owenluis desir ([id number]) prognosis poor condition critical critical care time 50 minutes Plan discussed with: Patient My Orders Orders - RAJINDER CARREON MD Procedure Category Date Status Time Hemoglobin & LAB 07/14/24 Logged Hematocrit 18:00 Date of Service: Jul 14, 2024 Billing Provider: RAJINDER CARREON MD Common Visit Codes: [id number] CARE 30-74 MIN RAJINDER CARREON MD Jul 14, 2024 13:37
[2024-07-14 14:25] LABS: Basophils # (auto) 0.1 10 ^3/uL (0-0.2); Basophils % (auto) 0.5 % (0.0-2.0); Eosinophils # (auto) 0.4 10 ^3/uL (0-0.8); Eosinophils % (auto) 3.3 % (0.0-7.0); Hematocrit 25.6 % (41.0-53.0); Hemoglobin 8.4 g/dL (13.5-17.5); Lymphocytes # (auto) 1.2 10 ^3/uL (0.4-5.4); Lymphocytes % (auto) 9.8 % (10.0-50.0); Mean Corpuscular Hemoglobin 26.4 pg (28.0-32.0); Mean Corpuscular Hgb Conc. 32.9 g/dL (32.0-36.0); Mean Corpuscular Volume 80.4 fL (80.0-100.0); Monocytes # (auto) 1.2 10 ^3/uL (0-1.3); Monocytes % (auto) 9.5 % (0.0-12.0); Neutrophils # (auto) 9.7 10 ^3/uL (1.6-8.6); Neutrophils % (auto) 76.9 % (37.0-80.0); Nucleated Red Blood Cells % 0.1 %; Platelet Count (auto) 122 10^3/uL (140-450); Red Blood Cells 3.19 10^6/uL (4.5-5.90); Red Cell Distribution Width 21.4 % (11.8-14.3); White Blood Cell 12.6 10^3/uL (4.4-10.8)
--- NOTE | 2024-07-14 20:38 | DVHPN2 ---
Progress Note - Dictate Date Seen: Jul 14, 2024 Medical Necessity Reason Pt with a Central, PICC or Fol: No Subjective Patient seen at bedside He has no further episodes of nausea vomiting or melena These symptoms occurred last week and I have now resolved Patient is tolerating a clear liquid diet Patient had two endoscopies last year for similar symptoms Operative Report DATE OF OPERATION: 11/07/23 PROCEDURE: Upper Endoscopy with biopsy PREOPERATIVE INDICATION: The patient is a 38 -year-old male undergoing endoscopy for severe anemia and history of GI bleed POSTOPERATIVE DIAGNOSES: 1. Slight prominence of the single distal esophageal vein however no significant esophageal varix noted 2. 1-2 cm sliding-type hiatal hernia with minimal grade a erosive esophagitis 3. Moderate portal hypertension gastropathy with increased oozing from biopsy sites 4. Mild antral gastritis with pre-pyloric antral gastric erosions 5. Mild duodenitis with superficial erosions and some oozing from scope pressure Operative Report DATE OF PROCEDURE: 08/04/23 INDICATIONS FOR THE PROCEDURE: GI bleeding upper GI bleeding with black stools and hematemesis PROCEDURE PERFORMED: 1. Esophagogastroduodenoscopy and biopsy POSTOPERATIVE DIAGNOSIS: Esophagitis of the distal esophagus without any bleeding Small tiny distal esophageal varix without bleeding Antral gastritis with erosions Small superficial duodenal ulcer without any bleeding at this time vital signs Vital Sign Date Time Temp Pulse Resp B/P (MAP) Pulse Ox O2 Delivery O2 Flow Rate FiO2 07/14/24 20:00 96 20 96 Room Air* 0 21 07/14/24 20:00 99.3 148/94 (112) 99.3 Total Intake and Output 07/13/24 07/13/24 07/14/24 15:00 23:00 07:00 Intake Total 810 ml 925 ml 2992 ml Output Total 450 ml 400 ml Balance 360 ml 925 ml 2592 ml medications Current Medications Medications Dose Ordered Sig/Kel Route Start Time Stop Time Status Last Admin Dose Admin Octreotide Acetate 500 mcg/ Sodium Chloride 100 ml @ 10 mls/hr Q10H IV 07/12/24 20:15 07/14/24 19:07 10 MLS/HR Sodium Chloride 1,000 ml @ 90 mls/hr Q11H7M IV 07/12/24 22:00 07/14/24 18:32 90 MLS/HR Piperacillin Sod/ Tazobactam Sod 100 ml @ 25 mls/hr Q8H IV 07/13/24 05:00 07/14/24 13:15 25 MLS/HR Pantoprazole Sodium 50 ml @ 10 mls/hr Q5H IV 07/12/24 22:00 07/14/24 20:19 10 MLS/HR Ondansetron HCl 4 mg Q4HP PRN IV 07/12/24 22:00 Thiamine HCl 100 mg DAILY IV 07/14/24 10:00 07/14/24 10:35 100 MG Folic Acid 1 mg/ Dextrose 50.2 ml @ 200.8 mls/ hr DAILY INJ 07/14/24 10:00 07/14/24 10:36 200.8 MLS/HR Diagnostic Test (Pha) 1 strip Q6HR 07/13/24 18:00 07/14/24 18:24 1 STRIP Lorazepam 1 mg Q2HPRN PRN IV 07/13/24 13:00 objective General: Alert and oriented lying in bed no distress HEENT: NC/AT EOMI PERRLA O/P clear +scleral icterus Heart: Regular rate and rhythm Lungs: Clear to auscultation anterior Abdomen: Soft, nontender, nondistended Extremity: No clubbing cyanosis or edema laboratory and microbiology Laboratory Tests 07/14/24 13:55 07/13/24 12:45 Test 07/13/24 12:45 Range/Units Serum Glucose 105 74-106 mg/dL Problems(with codes): (1) Upper GI bleed (2) Alcohol withdrawal (3) Alcoholic liver disease (4) Blood loss anemia (5) Portal hypertension (6) History of alcohol abuse Prognosis Plan At this time I would recommend conservative management Patient is likely source of bleeding is either mild underlying portal hypertension gastropathy or gastroduodenitis We will treated symptomatically with Protonix 40 mg p.o. twice a day Carafate 1 g p.o. twice a day Taper off IV octreotide drip when this bag finishes Change Protonix drip to Protonix 40 mg IV q.12 hours when current bag finishes Patient was counseled about discontinuing alcohol ; also DC aspirin NSAIDs He stated he had stopped for a while but has recently started drinking again Full liquid diet and continue observation I think I will defer from an endoscopy at this time unless the patient shows signs of ongoing active bleeding Dietary Evaluation Review Comments: 1. Advance to 2gm Na soft diet as medically feasible 2. Continue current plan of care Expected Outcomes/Goals: To meet 75% estimated needs FU 2-3 days Plan discussed with: Patient, Other (GUERO Nurse) CC Plasma Assessment Blood Product Administration S: [id number] AILEEN SNOW MD Jul 14, 2024 20:37
[2024-07-15] VITALS (14 sets, daily range): BP systolic 121–171; BP diastolic 72–102; PULSE 74–100; RESP 14–26; TEMP 98.2–98.7; O2SAT 94–99
[2024-07-15 06:04] LABS: Basophils # (auto) 0.1 10 ^3/uL (0-0.2); Basophils % (auto) 0.9 % (0.0-2.0); Eosinophils # (auto) 0.5 10 ^3/uL (0-0.8); Eosinophils % (auto) 3.7 % (0.0-7.0); Hematocrit 26.2 % (41.0-53.0); Hemoglobin 8.7 g/dL (13.5-17.5); Lymphocytes # (auto) 1.6 10 ^3/uL (0.4-5.4); Lymphocytes % (auto) 13.1 % (10.0-50.0); Mean Corpuscular Hemoglobin 26.5 pg (28.0-32.0); Mean Corpuscular Volume 80.1 fL (80.0-100.0); Monocytes # (auto) 1.5 10 ^3/uL (0-1.3); Monocytes % (auto) 12.3 % (0.0-12.0); Neutrophils # (auto) 8.7 10 ^3/uL (1.6-8.6); Nucleated Red Blood Cells % 0.1 %; Platelet Count (auto) 120 10^3/uL (140-450); Red Blood Cells 3.28 10^6/uL (4.5-5.90); White Blood Cell 12.4 10^3/uL (4.4-10.8)
[2024-07-15 06:06] LABS: Red Cell Distribution Width 21.7 % (11.8-14.3)
[2024-07-15 06:41] LABS: Albumin 3.2 g/dL (3.2-4.8); Anion Gap 8 (5-15); BUN/Creatinine Ratio 11.1 (10.0-20.0); Carbon Dioxide 26 mmol/L (20-31); Chloride 99 mmol/L (98-107); Glucose 89 mg/dL (74-106); Total Protein 5.8 g/dL (5.7-8.2)
[2024-07-15 06:49] LABS: Alanine Aminotransferase 73 U/L (7-40); Alkaline Phosphatase 159 U/L (46-116); Aspartate Aminotransferase 73 U/L (13-40); Bilirubin, Total 4.6 mg/dL (0.2-1.0); Blood Urea Nitrogen 6 mg/dL (9-23); Calcium 8.4 mg/dL (8.7-10.4); Potassium 3.2 mmol/L (3.5-5.1); Sodium 133 mmol/L (136-145)
[2024-07-15] MEDS: PANTOPRAZOLE 40 MG/10 ML VIAL INJ IV SCH (10:37)
--- NOTE | 2024-07-15 15:35 | DVHPN2 ---
Assessment/Plan Assessment/Plan Progress note 39 M with alcoholic cirrhosis admitted for UGIB seen today during rounds no scope per GI, HH stable. transfer to floor Physical exam aox3 clear breath sounds s1 s2 rrr no murmur abdomen distended, mildly tender, hepatomegaly no le edema labs ekg imaging reviewed assessment and plan hemorrhagic shock UGIB likely variecal bleed alcoholic cirrhosis NANDO VMN leukocytosis lactic acidosis hyponatremia microcytic anemia thickening of distal esophagus? alcohol use MTP if in shock pressor maintain MAP >65 protonix and octreotide IV bolus, PRBC maintain hb >7 iv thiamine folate blood smear vanc and zosyn GI consult appreciated, stablize prior to scope resources for alcohol use CIWA protocol diet clear liquid dvt ppx none gi ppx on protonix drip full code decision maker owen karlee ([phone]) prognosis poor condition critical Plan discussed with: Patient My Orders Orders - RAJINDER CARREON MD Procedure Category Date Status Time Transfer Orders XFER 07/15/24 Transmitted 11:09 Potassium Effervesent PHA 07/15/24 Logged Tab (Klor-Con/Ef) 15:30 Date of Service: Jul 15, 2024 Billing Provider: RAJINDER CARREON MD Common Visit Codes: [id number] INP/OBS CARE(HIGH) RAJINDER CARREON MD Jul 15, 2024 15:35
[2024-07-15] MEDS: POTASSIUM EFFERVESENT TAB 25 MEQ PO ONE (16:09)
--- NOTE | 2024-07-15 20:43 | DVHPN2 ---
Progress Note - Dictate Date Seen: Jul 15, 2024 Medical Necessity Reason Pt with a Central, PICC or Fol: No Subjective Patient seen at bedside He has no further episodes of nausea vomiting or melena These symptoms occurred last week and have now resolved Patient is tolerating a clear liquid diet Patient had two endoscopies last year for similar symptoms Operative Report DATE OF OPERATION: 11/07/23 PROCEDURE: Upper Endoscopy with biopsy PREOPERATIVE INDICATION: The patient is a 38 -year-old male undergoing endoscopy for severe anemia and history of GI bleed POSTOPERATIVE DIAGNOSES: 1. Slight prominence of the single distal esophageal vein however no significant esophageal varix noted 2. 1-2 cm sliding-type hiatal hernia with minimal grade a erosive esophagitis 3. Moderate portal hypertension gastropathy with increased oozing from biopsy sites 4. Mild antral gastritis with pre-pyloric antral gastric erosions 5. Mild duodenitis with superficial erosions and some oozing from scope pressure Operative Report DATE OF PROCEDURE: 08/04/23 INDICATIONS FOR THE PROCEDURE: GI bleeding upper GI bleeding with black stools and hematemesis PROCEDURE PERFORMED: 1. Esophagogastroduodenoscopy and biopsy POSTOPERATIVE DIAGNOSIS: Esophagitis of the distal esophagus without any bleeding Small tiny distal esophageal varix without bleeding Antral gastritis with erosions Small superficial duodenal ulcer without any bleeding at this time vital signs Vital Sign Date Time Temp Pulse Resp B/P (MAP) Pulse Ox O2 Delivery O2 Flow Rate FiO2 07/15/24 17:18 98.3 88 18 130/86 (101) 98 98.3 07/15/24 15:36 Room Air* 0 21 Total Intake and Output 07/14/24 07/14/24 07/15/24 15:00 23:00 07:00 Intake Total 1550.2 ml 1930 ml 1460 ml Output Total 4970 ml 2500 ml Balance 1550.2 ml -3040 ml -1040 ml medications Current Medications Medications Dose Ordered Sig/Kel Route Start Time Stop Time Status Last Admin Dose Admin Octreotide Acetate 500 mcg/ Sodium Chloride 100 ml @ 10 mls/hr Q10H IV 07/12/24 20:15 07/15/24 17:33 10 MLS/HR Sodium Chloride 1,000 ml @ 90 mls/hr Q11H7M IV 07/12/24 22:00 07/15/24 17:33 90 MLS/HR Piperacillin Sod/ Tazobactam Sod 100 ml @ 25 mls/hr Q8H IV 07/13/24 05:00 07/15/24 13:18 25 MLS/HR Ondansetron HCl 4 mg Q4HP PRN IV 07/12/24 22:00 Thiamine HCl 100 mg DAILY IV 07/14/24 10:00 07/15/24 10:30 100 MG Folic Acid 1 mg/ Dextrose 50.2 ml @ 200.8 mls/ hr DAILY INJ 07/14/24 10:00 07/15/24 10:00 200.8 MLS/HR Diagnostic Test (Pha) 1 strip Q6HR 07/13/24 18:00 07/15/24 17:33 1 STRIP Lorazepam 1 mg Q2HPRN PRN IV 07/13/24 13:00 Pantoprazole Sodium 40 mg BID IV 07/15/24 10:00 07/15/24 10:37 40 MG objective General: Alert and oriented lying in bed no distress HEENT: NC/AT EOMI PERRLA O/P clear +scleral icterus Heart: Regular rate and rhythm Lungs: Clear to auscultation anterior Abdomen: Soft, nontender, nondistended Extremity: No clubbing cyanosis or edema laboratory and microbiology Laboratory Tests 07/15/24 05:24 Test 07/15/24 05:24 Range/Units Serum Glucose 89 74-106 mg/dL Problems(with codes): (1) Upper GI bleed (2) Alcoholic liver disease (3) Blood loss anemia (4) Portal hypertension (5) History of alcohol abuse (6) Liver cirrhosis (7) Acute renal insufficiency Prognosis Plan At this time I would recommend conservative management; no urgent or immediate endoscopy required Patient is likely source of bleeding is either mild underlying portal hypertension gastropathy or gastroduodenitis We will treat symptomatically with Protonix 40 mg p.o. twice a day Carafate 1 g p.o. twice a day Taper off IV octreotide drip when this bag finishes Change Protonix drip to Protonix 40 mg IV q.12 hours when current bag finishes Patient was counseled about discontinuing alcohol ; also DC aspirin NSAIDs He stated he had stopped for a while but has recently started drinking again Full liquid diet and advance as tolerated I think I will defer from an endoscopy at this time unless the patient shows signs of ongoing active bleeding Dietary Evaluation Review Comments: 1. Advance to 2gm Na soft diet as medically feasible 2. Continue current plan of care Expected Outcomes/Goals: To meet 75% estimated needs FU 2-3 days Plan discussed with: Other (Dr Arteaga) CC Plasma Assessment Blood Product Administration S: [id number] AILEEN SNOW MD Jul 15, 2024 20:43
--- NOTE | 2024-07-15 22:55 | DVHPN2 ---
Assessment/Plan Assessment/Plan Progress note 39 M with alcoholic cirrhosis admitted for UGIB seen today during rounds stable HH, advance diet as tolerated, resources for alohol cessation Physical exam aox3 clear breath sounds s1 s2 rrr no murmur abdomen distended, mildly tender, hepatomegaly no le edema labs ekg imaging reviewed assessment and plan hemorrhagic shock UGIB likely variecal bleed alcoholic cirrhosis NANDO VMN leukocytosis lactic acidosis hyponatremia microcytic anemia thickening of distal esophagus? alcohol use MTP if in shock pressor maintain MAP >65 dc octreatide, protonix to BID IV bolus, PRBC maintain hb >7 iv thiamine folate blood smear vanc and zosyn GI consult appreciated resources for alcohol use CIWA protocol diet clear liquid dvt ppx none gi ppx on protonix drip full code decision maker owen karlee ([phone]) prognosis poor condition critical Plan discussed with: Patient My Orders Orders - RAJINDER CARREON MD Procedure Category Date Status Time Transfer Orders XFER 07/15/24 Transmitted 11:09 Basic Metabolic Panel LAB 07/16/24 Verified 04:00 Complete Blood Count LAB 07/16/24 Verified 04:00 Magnesium LAB 07/16/24 Verified 04:00 Phosphorus LAB 07/16/24 Verified 04:00 Date of Service: Jul 15, 2024 Billing Provider: RAJINDER CARREON MD Common Visit Codes: [id number] INP/OBS CARE(HIGH) RAJINDER CARREON MD Jul 15, 2024 22:55
[2024-07-16] VITALS (7 sets, daily range): BP systolic 129–154; BP diastolic 82–105; PULSE 69–100; RESP 16–18; TEMP 97.6–98.2; O2SAT 96–100
[2024-07-16 07:44] LABS: Basophils # (auto) 0.1 10 ^3/uL (0-0.2); Hemoglobin 9.6 g/dL (13.5-17.5); Lymphocytes # (auto) 1.6 10 ^3/uL (0.4-5.4); Nucleated Red Blood Cells % 0.2 %; White Blood Cell 10.3 10^3/uL (4.4-10.8)
[2024-07-16 07:46] LABS: Basophils % (auto) 0.8 % (0.0-2.0); Eosinophils # (auto) 0.5 10 ^3/uL (0-0.8); Eosinophils % (auto) 5.1 % (0.0-7.0); Hematocrit 28.8 % (41.0-53.0); Lymphocytes % (auto) 15.7 % (10.0-50.0); Mean Corpuscular Hemoglobin 27.2 pg (28.0-32.0); Mean Corpuscular Hgb Conc. 33.3 g/dL (32.0-36.0); Mean Corpuscular Volume 81.5 fL (80.0-100.0); Monocytes # (auto) 1.7 10 ^3/uL (0-1.3); Monocytes % (auto) 16.6 % (0.0-12.0); Neutrophils # (auto) 6.4 10 ^3/uL (1.6-8.6); Neutrophils % (auto) 61.8 % (37.0-80.0); Platelet Count (auto) 129 10^3/uL (140-450); Red Blood Cells 3.53 10^6/uL (4.5-5.90)
[2024-07-16 07:47] LABS: Chloride 101 mmol/L (98-107); Potassium 4.2 mmol/L (3.5-5.1)
[2024-07-16 07:48] LABS: Anion Gap 10 (5-15); Calcium 8.5 mg/dL (8.7-10.4); Carbon Dioxide 23 mmol/L (20-31); Red Cell Distribution Width 22.8 % (11.8-14.3); Sodium 134 mmol/L (136-145)
[2024-07-16 07:53] LABS: Blood Urea Nitrogen 7 mg/dL (9-23); Glucose 88 mg/dL (74-106)
[2024-07-16 07:54] LABS: Magnesium 1.9 mg/dL (1.6-2.6)
[2024-07-16 07:55] LABS: Phosphorus 3.4 mg/dL (2.4-5.1)
--- NOTE | 2024-07-16 11:13 | MEDREC ---
[facility] Intervention Section I [facility] Intervention: Review courses of therapy (PLEASE CONSIDER D/C ANTIBIOTIC(S) IN ABSENCE OF BACTERIAL INFECTION) BRAYAN MERCADO PHARMACIST Jul 16, 2024 11:13
[2024-07-16] MEDS: FOLIC ACID 1 MG TAB PO SCH (12:01)
[2024-07-16] MEDS: PANTOPRAZOLE 40 MG TAB PO SCH (17:00)
--- NOTE | 2024-07-16 21:55 | DVHDS2 ---
Discharge Summary Date of Admission Jul 12, 2024 at 21:55 Date of Discharge: Jul 16, 2024 Labs/Diagnostic Data: Laboratory Results Test 07/16/24 06:23 07/16/24 06:06 07/15/24 05:24 07/13/24 21:07 POC Glucose 103 mg/dl (70-106) White Blood Count 10.3 10^3/uL (4.4-10.8) Red Blood Count 3.53 10^6/uL (4.5-5.90) Hemoglobin 9.6 g/dL (13.5-17.5) Hematocrit 28.8 % (41.0-53.0) Mean Corpuscular Volume 81.5 fL (80.0-100.0) Mean Corpuscular Hemoglobin 27.2 pg (28.0-32.0) Mean Corpuscular Hemoglobin Concent 33.3 g/dL (32.0-36.0) Red Cell Distribution Width 22.8 % (11.8-14.3) Platelet Count 129 10^3/uL (140-450) Mean Platelet Volume 8.5 fL (6.9-10.8) Neutrophils (%) (Auto) 61.8 % (37.0-80.0) Lymphocytes (%) (Auto) 15.7 % (10.0-50.0) Monocytes (%) (Auto) 16.6 % (0.0-12.0) Eosinophils (%) (Auto) 5.1 % (0.0-7.0) Basophils (%) (Auto) 0.8 % (0.0-2.0) Neutrophils # (Auto) 6.4 10 ^3/uL (1.6-8.6) Lymphocytes # (Auto) 1.6 10 ^3/uL (0.4-5.4) Monocytes # (Auto) 1.7 10 ^3/uL (0-1.3) Eosinophils # (Auto) 0.5 10 ^3/uL (0-0.8) Basophils # (Auto) 0.1 10 ^3/uL (0-0.2) Nucleated Red Blood Cells 0.2 % Sodium Level 134 mmol/L (136-145) Potassium Level 4.2 mmol/L (3.5-5.1) Chloride Level 101 mmol/L (98-107) Carbon Dioxide Level 23 mmol/L (20-31) Anion Gap 10 (5-15) Blood Urea Nitrogen 7 mg/dL (9-23) Creatinine 0.54 mg/dL (0.700-1.30) Glomerular Filtration Rate Calc 132 mL/min (>90) BUN/Creatinine Ratio 13.0 (10.0-20.0) Serum Glucose 88 mg/dL (74-106) Calcium Level 8.5 mg/dL (8.7-10.4) Phosphorus Level 3.4 mg/dL (2.4-5.1) Magnesium Level 1.9 mg/dL (1.6-2.6) Lactic Acid Level 0.9 mmol/L (0.4-2.0) Total Bilirubin 4.6 mg/dL (0.2-1.0) Aspartate Amino Transferase (AST) 73 U/L (13-40) Alanine Aminotransferase (ALT) 73 U/L (7-40) Alkaline Phosphatase 159 U/L (46-116) Ammonia 66 umol/L (11-32) Total Protein 5.8 g/dL (5.7-8.2) Albumin 3.2 g/dL (3.2-4.8) Prothrombin Time 13.4 sec (9.3-11.8) Prothrombin Time INR 1.30 (0.9-1.15) Activated Partial Thromboplast Time 27.0 SEC (24.5-34.5) Fibrinogen 211 mg/dL (177-375) Test 07/13/24 12:45 07/13/24 01:30 07/12/24 21:32 07/12/24 21:30 Platelet Estimate Adequate Anisocytosis (manual) Slight Tear Drop Cells Few Ovalocytes Few Sid Cells Troponin I High Sensitivity 79 ng/L (</=54) Urine Color Yellow (Yellow) Urine Clarity Turbid (Clear) Urine pH 5.5 (5.0-9.0) Urine Specific [place] 1.016 (1.001-1.035) Urine Protein Trace (Negative) Urine Ketones Trace (Negative) Urine Blood Trace /uL (Negative) Urine Nitrite Negative (Negative) Urine Bilirubin Negative (Negative) Urine Urobilinogen Normal mg/dL (Negative) Urine Leukocyte Esterase Negative /uL (Negative) Urine RBC 1 /hpf (0 - 3) Urine Microscopic WBC 7 /HPF (0-3) Urine Squamous Epithelial Cells Few /hpf (<5) Urine Bacteria None seen /hpf (None Seen) Urine Hyaline Casts Few /lpf (0 - 2) Urine Mucus Few (None Seen) Urine Glucose Trace mg/dL (Normal) Urine Opiates Screen Neg (NEGATIVE) Urine Fentanyl Screen Neg (NEGATIVE) Urine Barbiturates Screen Neg (NEGATIVE) Urine Phencyclidine Screen Neg (NEGATIVE) Urine Amphetamines Screen Neg (NEGATIVE) Urine Benzodiazepines Screen Neg (NEGATIVE) Urine Cocaine Screen Neg (NEGATIVE) Urine Cannabinoids Screen Neg (NEGATIVE) Blood Gas Specimen Type Arterial Blood Gas Sample Site Right radial Blood Gas Patient Temperature 37.0 Arterial Blood Date Drawn [id number] Arterial Blood pH 7.259 (7.350-7.450) Arterial Blood Partial Pressure CO2 22.3 mmHg (35.0-48.0) Arterial Blood Partial Pressure O2 50.7 mmHg (83.0-108.0) Arterial Blood HCO3 9.8 mmol/L (21.0-28.0) Ike Test Yes Blood Gas Total Hemoglobin < 4.90 g/dL (13.5-17.5) Blood Gas Liter Flow 6.00 Blood Gas Modality Oxymizer FiO2 % 52.0 Blood Gas Critical Value Read Back Yes Blood Gas Notified 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 Blood Gas Notified Time [id number] Blood Gas Notified By Well Surveying Engineer nay sona Plasma/Serum Blood Alcohol < 3.0 mg/dL (<10) Test 07/12/24 20:09 Differential Total Cells Counted 100.0 (100) Neutrophils % (Manual) 85 (37.0-80.0) Band Neutrophils % (Manual) 5 Lymphocytes % (Manual) 4 (10.0-50.0) Monocytes % (Manual) 5 (0-12) Eosinophils % (Manual) 1 (0-7) Basophils % (Manual) 0 (0.0-2.0) Metamyelocytes % (manual) 0 Myelocytes % (Manual) 0 Promyelocytes % (Manual) 0 Blast Cells % (Manual) 0 Reactive Lymphocytes 0 Large Platelets Few Polychromasia Slight Hypochromasia (manual) Moderate Poikilocytosis (manual) Moderate Microcytosis Moderate Stomatocytes Few Schistocytes Few B-Type Natriuretic Peptide 69.82 pg/mL (0-100) Other Laboratory Tests 07/16/24 06:06 Brief Hx & Hospital Course: 39 M with alcoholic cirrhosis admitted for UGIB. patient was given pRBC and FFP, started on octreotide and PPI, seen by GI. no further workup since patient had prior EGD and likely source of bleeding is portal gastropathy. patient was placed on CIWA protocol however not withdrawing. NANDO improved. patient will need to be followed up as outpatinet. SS consult done, patient given resources on alcohol cessation and educated extensively. stable to dc home. f/u wioth PCP and GI as outpatient. protonix PO. Condition at Discharge: Good Final Diagnosis/Problems List hemorrhagic shock UGIB likely variecal bleed alcoholic cirrhosis NANDO VMN leukocytosis lactic acidosis hyponatremia microcytic anemia thickening of distal esophagus? alcohol use Discharge Disposition: Home Discharge Instruct/Medications Diet: Regular Activity: No Restrictions, As Tolerated Follow Up/Referral: gi pcp Discharge Statement: "Patient was advised to return to the ER or call 911 if any headaches, dizziness, shortness of breath, chest pain, abdominal pain, bleeding, fevers, or worsening of medical condition. Patient was counseled about treatment plan, medications, possible side effects, patientverbalized understanding. All questions were answered to the best of my ability. This discharge took greater then 30 minutes in planning, reviewing documentation, counseling the patient, and discussing with other team members." ASSESSMENT ASSESSMENT Assessment GIB Date of Service: Jul 16, 2024 Billing Provider: RAJINDER CARREON MD Common Visit Codes: 54781-EWU/OBS DISCH DAY >30min RAJINDER CARREON MD Jul 16, 2024 21:55
[2024-07-17] MEDS ORDERED: THIAMINE HCL 100 MG TAB PO SCH (10:00)
== END 2024-07-16 19:07 | disposition home or self-care (01) | DRG 280 ==
LOC: ER 19:46 → OVERFLOW 21:55 → DOU IN ICU 07-13 00:27 → TELE-WESTW 07-15 15:00
PROVIDERS: ADMIT Student in an Organized Health Care Education/Training Program; ATTEND Student in an Organized Health Care Education/Training Program
PROC: 30233N1 Transfusion of Nonautologous Red Blood Cells into Peripheral Vein, Percutaneous Approach (ICD-10-PCS; principal; 2024-07-12)
PROC: 30233K1 Transfusion of Nonautologous Frozen Plasma into Peripheral Vein, Percutaneous Approach (ICD-10-PCS; 2024-07-14)
DX: K70.30 Alcoholic cirrhosis of liver without ascites (principal); J96.01 Acute respiratory failure with hypoxia; N17.0 Acute kidney failure with tubular necrosis; R57.8 Other shock; R65.11 Systemic inflammatory response syndrome (SIRS) of non-infectious origin with acute organ dysfunction; E87.1 Hypo-osmolality and hyponatremia; D68.9 Coagulation defect, unspecified; I85.11 Secondary esophageal varices with bleeding; D68.4 Acquired coagulation factor deficiency; E87.20 Acidosis, unspecified; E86.0 Dehydration; F14.10 Cocaine abuse, uncomplicated; F12.10 Cannabis abuse, uncomplicated; E80.6 Other disorders of bilirubin metabolism; D50.0 Iron deficiency anemia secondary to blood loss (chronic); K31.89 Other diseases of stomach and duodenum; F10.10 Alcohol abuse, uncomplicated; Y90.0 Blood alcohol level of less than 20 mg/100 ml; Z79.899 Other long term (current) drug therapy; Z71.41 Alcohol abuse counseling and surveillance of alcoholic
CPT/HCPCS: 36415; 36430; 36600; 71045; 74176; 80048; 80053; 80307; 80320; 81001; 82140; 82805; 82962; 83605; 83735; 83880; 84100; 84484; 85007; 85014; 85018; 85025; 85027; 85384; 85610; 85730; 86850; 86900; 86901; 86920; 87040; 87081; 93005; 96365; 96375; 99291; G0378; J2470; J2543; J7060